=== PATIENT | male | born 1990 | race African-American/Black ===

== ENCOUNTER 2016-07-07 16:13 | Emergency (ER) | payer OTHER ==
[~2016-07-07] VITALS: Ht 177.8 cm; Wt 52.5 kg
[~2016-07-07 16:13] MED LIST: AMOX875T PO
[2016-07-07 16:15] VITALS: BP 114/82; PULSE 75; RESP 16; TEMP 98.3; O2SAT 98
--- NOTE | 2016-07-07 19:08 | PD ---
HPI Chief Complaint: Abnormal Results Time Seen by Provider: 19:05 Travel History International Travel<30 days: No Contact w/Intl Traveler<30days: No Traveled to known affect area: No History of Present Illness HPI 25-year-old male presents to the emergency department sent by his primary care physician, Dr. Campbell. Patient is a poor historian. He states that he was sent here for his kidneys. At first, he states he states he has been vomiting for approximately 2 months, but then states she's been vomiting for 1 year, but it worsened for the past 2 months. He states that he had a follow-up appointment with Dr. Campbell today. He states he was sent here for his kidneys , but then states he was sent here because he looked dehydrated. The patient reports diffuse abdominal pain. He states that he has "problems with my kidneys ", but no other chronic medical problems. He states he does not currently take any medications. PFSH Past Medical History Asthma: Yes Cancer: No Cardiovascular Problems: No Diabetes: No Endocrine: No Gastrointestinal Disorders: No Genitourinary: No Hepatitis: No Hiatal Hernia: No Hypertension: No Immune Disorder: No Musculoskeletal: No Neurologic: No Psychiatric: No Reproductive: No Respiratory: Yes (ASTHMA) Thyroid Disease: No Past Surgical History Abdominal Surgery: No AICD: No Cardiac Surgery: No Ear Surgery: No Endocrine Surgery: No Eye Surgery: No Genitourinary Surgery: No Gynecologic Surgery: No Joint Replacement: No Oral Surgery: No Pacemaker: No Thoracic Surgery: Yes Social History Alcohol Use: No Tobacco Use: No Substance Use: Yes (smokes pot) Allergies-Medications (Allergen,Severity, Reaction): Coded Allergies: No Known Allergies (Unverified , 03/29/16) Reported Meds & Prescriptions Reported Meds & Active Scripts Active Amoxicillin 875 Mg Tab 875 Mg PO BID Review of Systems Except as stated in HPI: all other systems reviewed are Neg Physical Exam Narrative GENERAL: Well-developed well-nourished male patient, ambulatory. Afebrile. SKIN: Warm and dry. HEAD: Normocephalic. Atraumatic. EYES: No scleral icterus. No injection or drainage. NECK: Supple, trachea midline. No JVD or lymphadenopathy. CARDIOVASCULAR: Regular rate and rhythm without murmurs, gallops, or rubs. RESPIRATORY: Breath sounds equal bilaterally. No accessory muscle use. Lungs sounds are clear to auscultation. GASTROINTESTINAL: Abdomen soft and nondistended. Patient has diffuse tenderness throughout. MUSCULOSKELETAL: No cyanosis, or edema. BACK: Nontender without obvious deformity. No CVA tenderness. Data Data Last Documented VS Vital Signs Date Time Temp Pulse Resp B/P Pulse Ox O2 Delivery O2 Flow Rate FiO2 07/07/16 16:15 98.3 75 16 114/82 98 Room Air Orders Complete Blood Count With Diff (07/07/16 19:05) Comprehensive Metabolic Panel (07/07/16 19:05) Lipase (07/07/16 19:05) Labs Laboratory Tests Test 07/07/16 19:30 White Blood Count 5.4 TH/MM3 Red Blood Count 3.29 MIL/MM3 Hemoglobin 9.7 GM/DL Hematocrit 28.5 % Mean Corpuscular Volume 86.6 FL Mean Corpuscular Hemoglobin 29.5 PG Mean Corpuscular Hemoglobin 34.1 % Concent Red Cell Distribution Width 14.1 % Platelet Count 109 TH/MM3 Mean Platelet Volume 9.0 FL Neutrophils (%) (Auto) 55.9 % Lymphocytes (%) (Auto) 30.3 % Monocytes (%) (Auto) 7.5 % Eosinophils (%) (Auto) 5.8 % Basophils (%) (Auto) 0.5 % Neutrophils # (Auto) 3.0 TH/MM3 Lymphocytes # (Auto) 1.6 TH/MM3 Monocytes # (Auto) 0.4 TH/MM3 Eosinophils # (Auto) 0.3 TH/MM3 Basophils # (Auto) 0.0 TH/MM3 CBC Comment DIFF FINAL Differential Comment Sodium Level 142 MEQ/L Potassium Level 4.3 MEQ/L Chloride Level 108 MEQ/L Carbon Dioxide Level 27.2 MEQ/L Anion Gap 7 MEQ/L Blood Urea Nitrogen 41 MG/DL Creatinine 5.09 MG/DL Estimat Glomerular Filtration 17 ML/MIN Rate Random Glucose 101 MG/DL Calcium Level 8.5 MG/DL Total Bilirubin 0.4 MG/DL Aspartate Amino Transf 9 U/L (AST/SGOT) Alanine Aminotransferase 13 U/L (ALT/SGPT) Alkaline Phosphatase 49 U/L Total Protein 6.9 GM/DL Albumin 3.4 GM/DL Lipase 189 U/L [facility] Medical Decision Making Medical Screen Exam Complete: Yes Emergency Medical Condition: Yes Medical Record Reviewed: Yes Differential Diagnosis Dehydration versus CHRISTOPH versus ARF versus CRF versus pancreatitis versus chronic vomiting Narrative Course 25-year-old male presents to the emergency department stating he was sent by his primary care physician for kidney disease and dehydration. CBC, CMP, lipase are ordered and pending. Workup is initiated in triage. Once a medical bed becomes available, patient will be transferred and care assumed by that provider. Patient left AGAINST MEDICAL ADVICE before the patient was transferred to medical pod. Diagnosis Primary Impression: Left against medical advice Disposition: 07 AGAINST MEDICAL ADVICE Esme Gonzalez Jul 07, 2016 19:08
[2016-07-07 19:44] LABS: BASOPHIL % 0.5 % (0.0-2.0); EOSINOPHIL # 0.3 TH/MM3 (0-0.4); EOSINOPHIL % 5.8 % (0.0-4.0); HEMATOCRIT 28.5 % (39.0-51.0); HEMO FLAGS DIFF FINAL; LYMPH % 30.3 % (9.0-44.0); LYMPHOCYTE # 1.6 TH/MM3 (1.0-4.8); MEAN CELL VOLUME 86.6 FL (80.0-100.0); MEAN CORPUSCULAR HEMOGLOBIN 29.5 PG (27.0-34.0); MEAN CORPUSCULAR HGB CONC 34.1 % (32.0-36.0); MONO % 7.5 % (0.0-8.0); NEUT % 55.9 % (16.0-70.0); PLATELET COUNT 109 TH/MM3 (150-450); RED BLOOD COUNT 3.29 MIL/MM3 (4.50-5.90); RED CELL DISTRIBUTION WIDTH 14.1 % (11.6-17.2); WHITE BLOOD COUNT 5.4 TH/MM3 (4.0-11.0)
[2016-07-07 20:08] LABS: ALT (GPT) 13 U/L (12-78); ANION GAP 7 MEQ/L (5-15); AST (GOT) 9 U/L (15-37); BICARBONATE 27.2 MEQ/L (21.0-32.0); BLOOD UREA NITROGEN 41 MG/DL (7-18); CHLORIDE 108 MEQ/L (98-107); GLOMERULAR FILTRATION RATE 17 ML/MIN (>89); POTASSIUM 4.3 MEQ/L (3.5-5.1); SODIUM (NA) 142 MEQ/L (136-145)
[2016-07-07 20:11] LABS: ALKALINE PHOSPHATASE 49 U/L (45-117); TOTAL BILIRUBIN ADULT 0.4 MG/DL (0.2-1.0)
[2016-08-24] MEDS ORDERED: ALBU6.7H INH (09:32)
== END 2016-07-07 21:14 | disposition left against medical advice (07) ==
LOC: NETRI 16:13
DX: R11.10 Vomiting, unspecified (principal); R10.84 Generalized abdominal pain; J45.909 Unspecified asthma, uncomplicated
CPT/HCPCS: 80053; 83690; 85025; 99283

== ENCOUNTER → 2016-08-24 | Day surgery (SDC) | payer OTHER ==
[~2016-08-24] VITALS: Ht 177.8 cm; Wt 52.6 kg
[~2016-08-24] MED LIST changes: +ACETAMINOPHEN 1000 MG/100 ML VIAL IV ONE; +ALBU6.7H INH; +BUPIVACAINE/EPINEPHRINE 0.5% 50 ML VIAL ONE; +DEXAMETHASONE SOD PHOS 4 MG/ML VIAL ONE; +DO NOT ADM ANY ANTICOAGULANT DRUGS PRN; +FAMOTIDINE 20 MG/2 ML VIAL ONE; +HEPARIN SODIUM - IV 10,000 UNITS/10 ML VIAL ONE; +LACTATED RINGER'S 1000 ML INJ 1,000 ML IV ONE; +MIDAZOLAM HCL 2 MG/2 ML VIAL ONE; +MORPHINE SULFATE 4 MG/ML INJ PO PRN; +NEOSTIGMINE 3 MG/3 ML SYR IV ONE; +ONDANSETRON HCL 4 MG/2 ML VIAL ONE; +PROPOFOL 200 MG/20 ML AMP IV ONE; +PROTAMINE SULFATE 50 MG/5 ML VIAL ONE; +ZOFR4TAB PO; +ceFAZolin 2 GM PREMIX 50 ML ONE; +fentaNYL CITRATE 250 MCG/5 ML AMP ONE
[2016-08-24 09:44] VITALS: BP 132/95; PULSE 58; RESP 16; TEMP 97.8; O2SAT 100
--- NOTE | 2016-08-24 10:13 | RADRPT ---
EXAM DATE/TIME: 08/24/2016 09:37 [place] COMPARISON: CHEST SINGLE AP, March 03, 2016, 15:23. INDICATIONS : Evaluate for pneumothorax, pneumonia and communicable diseases. Pre-op for fistula placement. MEDICAL HISTORY : Asthma. SURGICAL HISTORY : None. ENCOUNTER: Initial ACUITY: 1 day PAIN SCORE: 0/10 LOCATION: Bilateral chest FINDINGS: A single view of the chest demonstrates the lungs to be symmetrically aerated without evidence of mas s, infiltrate or effusion. The cardiomediastinal contours are unremarkable. Osseous structures are intact. CONCLUSION: No acute disease. Maurice Morales MD FACR on August 24, 2016 at 10:11 Board Certified Radiologist. This report was verified electronically.
[2016-08-24 10:18] LABS: AUTOMATED NEUTROPHIL # 3.4 TH/MM3 (1.8-7.7); BASOPHIL % 0.6 % (0.0-2.0); EOSINOPHIL # 0.4 TH/MM3 (0-0.4); HEMATOCRIT 29.1 % (39.0-51.0); HEMO FLAGS DIFF FINAL; LYMPH % 24.9 % (9.0-44.0); LYMPHOCYTE # 1.4 TH/MM3 (1.0-4.8); MEAN CELL VOLUME 88.4 FL (80.0-100.0); MEAN CORPUSCULAR HEMOGLOBIN 28.7 PG (27.0-34.0); MEAN CORPUSCULAR HGB CONC 32.4 % (32.0-36.0); MONO % 6.8 % (0.0-8.0); NEUT % 60.7 % (16.0-70.0); PLATELET COUNT 103 TH/MM3 (150-450); RED BLOOD COUNT 3.29 MIL/MM3 (4.50-5.90); RED CELL DISTRIBUTION WIDTH 14.9 % (11.6-17.2); WHITE BLOOD COUNT 5.6 TH/MM3 (4.0-11.0)
[2016-08-24 10:27] LABS: APTT (PATIENT) 29.3 SEC (24.3-30.1)
[2016-08-24 10:31] LABS: BICARBONATE 26.6 MEQ/L (21.0-32.0); POTASSIUM 5.2 MEQ/L (3.5-5.1)
--- NOTE | 2016-08-24 10:46 | PD.VS.PN ---
Pre-operative Note Pre-operative diagnosis: near ESRD, need for HD access Planned procedure: L UE Access (brachiobasilic, 1st stage - likely) Interval History: The patient has persistent nausea but unchanged in weeks. No fevers and feels at baseline. Labs: Laboratory Results Test 08/24/16 09:50 White Blood Count 5.6 TH/MM3 (4.0-11.0) Red Blood Count 3.29 MIL/MM3 (4.50-5.90) Hemoglobin 9.4 GM/DL (13.0-17.0) Hematocrit 29.1 % (39.0-51.0) Mean Corpuscular Volume 88.4 FL (80.0-100.0) Mean Corpuscular Hemoglobin 28.7 PG (27.0-34.0) Mean Corpuscular Hemoglobin 32.4 % Concent (32.0-36.0) Red Cell Distribution Width 14.9 % (11.6-17.2) Platelet Count 103 TH/MM3 (150-450) Mean Platelet Volume 9.9 FL (7.0-11.0) Prothromb Time International 1.0 RATIO Ratio Sodium Level 140 MEQ/L (136-145) Potassium Level 5.2 MEQ/L (3.5-5.1) Chloride Level 108 MEQ/L (98-107) Carbon Dioxide Level 26.6 MEQ/L (21.0-32.0) Anion Gap 5 MEQ/L (5-15) Blood Urea Nitrogen 42 MG/DL (7-18) Random Glucose 85 MG/DL (74-106) Calcium Level 8.8 MG/DL (8.5-10.1) Blood: Pt refuses transfusion. Imaging: Last Impressions Chest X-Ray 08/24/16920 Signed Impressions: Service Date/Time: Wednesday, August 24, 2016 09:37 - CONCLUSION: No acute disease. Maurice Morales MD FACR Orders: NPO Ancef 2g IV OCTOR Post-operative destination: PACU (outpatient surgery) Operative site marked: Yes Consent: Informed consent has been obtained from Lonnie Lacy. I have explained the procedure in detail and discussed the risks, benefits, and potential complications. All questions have been answered. Patient contact information: mother Camacho Combs Brett MUNOZ August 24, 2016 10:46
--- NOTE | 2016-08-24 11:11 | EKG ---
Date Performed: 08/24/2016 Time Performed: 09:33:16 PTAGE: 25 years EKG: SINUS BRADYCARDIA ST ELEVATION, PROBABLY EARLY REPOLARIZATION BORDERLINE ECG NO PREVIOUS TRACING DOCTOR: Lalit Emery Interpretating Date/Time 08/24/2016 11:10:20
--- NOTE | 2016-08-24 13:10 | HHI.PR ---
cc: Etta Raymond MD Immediate Post Op Note Procedure Date: August 24, 2016 Pre Op Diagnosis: near ESRD, need for HD access Post Op Diagnosis: near ESRD, need for HD access Surgeon: Camacho Combs [employer] Supervisor(s): Karina Soria Procedure: L brachiocephalic AVF Findings: 3mm branch of cephalic vein, transposed and anastomosed to brachial artery Additional Information: + thrill and good Doppler signal at wrist Complications: none Specimen(s) removed: none Estimated blood loss: 20mL Anesthesia: General Drains: None Fluids: 800 mL IVF Patient to: PACU Patient Condition: Good Date/Time of Procedure: SEE SURGICAL CARE RECORD Camacho Combs MD August 24, 2016 13:10
[2016-08-24 15:45] VITALS: BP 162/89; PULSE 79; RESP 16; TEMP 96; O2SAT 100
--- NOTE | 2016-08-26 08:06 | MP ---
cc: LALO COMBS MD DATE OF 1990 PREOPERATIVE DIAGNOSIS Near end-stage renal disease, need for dialysis access. POSTOPERATIVE DIAGNOSIS Near end-stage renal disease, need for dialysis access. PROCEDURE Left brachiocephalic arteriovenous fistula. ATTENDING SURGEON Lalo Combs MD ANESTHESIA General. SMOKING PIPE [employer]KER Karina Soria INDICATIONS Mr. Lacy is a 25-year-old gentleman with [id number] renal disease who is not yet on dialysis. He is taken to the operating room for left upper extremity access. Preoperatively he was assessed to have a marginal basilic and cephalic vein and intraoperatively, after the administration of general anesthetic, his cephalic vein appeared adequate, although somewhat lateral from his brachial artery. This was chosen for the autogenous access. DESCRIPTION OF PROCEDURE Informed consent was obtained from the patient. He was taken to the operating room and placed supine on the operating room table. An appropriate time-out was taken to insure the patient's identity, the operative site and planned procedure. The administration of 2 grams of Ancef was initiated prior to the skin incision and will be discontinued after a single preoperative dose. Everyone in the room agreed with the time-out and we proceeded. His left arm was prepped and draped and antecubital incision was made with a 10 blade, carried down through the subcutaneous tissue with electrocautery. The cephalic vein was identified and dissected free, the side branches ligated with 3-0 silk. The cephalic vein was dissected free proximally and distally for some distance. The brachial artery was identified on the medial aspect of the incision. The distal aspect of the cephalic vain was clamped with a right-angle, the vein was transected and the proximal aspect was clamped with a Juvenal bulldog. The distal end was oversewn with 3-0 silk suture. After adequate length of the brachial artery was mobilized, the patient was systemically heparinized with 3000 units of IV heparin. Proximal and distal control of the brachial artery was obtained with profunda clamps and a longitudinal arteriotomy was made with an 11 blade, extended with [place] scissors. The vein was spatulated and sewn end-to-side with running 6-0 Prolene sutures. At the completion, the wound was flushed, noted to be hemostatic. Repair suture was made with 6-0 Prolene suture. There was a nice thrill in the fistula and the central cephalic vein was mobilized slightly to make the course lie in a more natural and smooth course. There was a nice thrill throughout the fistula. There was a Doppler signal at the wrist. The heparin was reversed with Protamine. The wound was irrigated, infiltrated with Marcaine and closed with 2-0 Polysorb, 3-0 Polysorb and 4-0 Monocryl. The sponge and needle counts were correct at the end of the case. I was present and scrubbed and performed the entire procedure. MD CECILIA Meier/VIDYA /2:09 PM /7:49 AM
== END | disposition home or self-care (01) ==
LOC: HSDC 08:38
PROVIDERS: ATTEND Surgery
DX: N18.6 End stage renal disease (principal); R00.1 Bradycardia, unspecified
CPT/HCPCS: 01844; 36821; 71010; 76937; 80048; 85025; 85610; 85730; 93005; J0131; J0690; J1100; J1644; J2250; J2405; J2710; J2720; J3010; J7120

== ENCOUNTER 2016-09-04 08:36 | Emergency (ER) | payer OTHER ==
[~2016-09-04] VITALS: Ht 177.8 cm; Wt 60.0 kg
[~2016-09-04 08:36] MED LIST changes: -ACETAMINOPHEN 1000 MG/100 ML VIAL IV ONE; -AMOX875T PO; -BUPIVACAINE/EPINEPHRINE 0.5% 50 ML VIAL ONE; -DEXAMETHASONE SOD PHOS 4 MG/ML VIAL ONE; -DO NOT ADM ANY ANTICOAGULANT DRUGS PRN; -FAMOTIDINE 20 MG/2 ML VIAL ONE; -HEPARIN SODIUM - IV 10,000 UNITS/10 ML VIAL ONE; -LACTATED RINGER'S 1000 ML INJ 1,000 ML IV ONE; -MIDAZOLAM HCL 2 MG/2 ML VIAL ONE; -MORPHINE SULFATE 4 MG/ML INJ PO PRN; -NEOSTIGMINE 3 MG/3 ML SYR IV ONE; -ONDANSETRON HCL 4 MG/2 ML VIAL ONE; -PROPOFOL 200 MG/20 ML AMP IV ONE; -PROTAMINE SULFATE 50 MG/5 ML VIAL ONE; -ZOFR4TAB PO; -ceFAZolin 2 GM PREMIX 50 ML ONE; -fentaNYL CITRATE 250 MCG/5 ML AMP ONE
[2016-09-04 08:38] VITALS: BP 146/85; PULSE 69; RESP 16; TEMP 98.3; O2SAT 99
[2016-09-04] MEDS ORDERED: ZOFR4TAB PO (10:11)
[2016-09-04] MEDS ORDERED: ONDANSETRON ODT 4 MG TAB PO ONE (10:15)
--- NOTE | 2016-09-04 10:19 | PD ---
HPI Chief Complaint: General Weakness Time Seen by Provider: 08:52 Travel History International Travel<30 days: No Contact w/Intl Traveler<30days: No Traveled to known affect area: No History of Present Illness HPI This patient complains of having paresthesias in his legs. He's had them for 2 months. They're somewhat intermittent. Yesterday at 9 PM they had a bit of a flare. He has no muscle weakness or sensory loss or speech slurring or confusion. He has history of chronic renal failure and had left arm vascular surgery 10 days ago in preparation for dialysis. Symptoms severity is mild. No alleviating factors. PFSH Past Medical History Asthma: Yes Cancer: No Cardiovascular Problems: No Diabetes: No Endocrine: No Gastrointestinal Disorders: No Genitourinary: No Hepatitis: No Hiatal Hernia: No Hypertension: No Immune Disorder: No Musculoskeletal: No Neurologic: No Psychiatric: No Reproductive: No Respiratory: Yes (ASTHMA) Renal Failure: Yes Thyroid Disease: No Past Surgical History Abdominal Surgery: No AICD: No Cardiac Surgery: No Ear Surgery: No Endocrine Surgery: No Eye Surgery: No Genitourinary Surgery: No Gynecologic Surgery: No Joint Replacement: No Oral Surgery: No Pacemaker: No Thoracic Surgery: Yes Other Surgery: Yes (DIALYSIS SHUNT PLACEMENT LEFT UPPER ARM) Social History Alcohol Use: No Tobacco Use: No Substance Use: Yes (MARIJUANA) Allergies-Medications (Allergen,Severity, Reaction): Coded Allergies: No Known Allergies (Unverified , 09/04/16) Reported Meds & Prescriptions Reported Meds & Active Scripts Active Zofran (Ondansetron HCl) 4 Mg Tab 4 Mg PO Q6HR PRN Reported Proventil Hfa 6.7 GM Inh (Albuterol Sulfate) 90 Mcg/Act Aer 1 Puff INH Q6HR PRN Review of Systems General / Constitutional: No: Fever HENT: No: Headaches Cardiovascular: No: Chest Pain or Discomfort Respiratory: No: Cough Physical Exam Narrative NEUROLOGICAL: Awake and alert. Pupils are equal round and reactive. Motor and sensory grossly within normal limits. Five out of 5 muscle strength in all muscle groups. Normal speech. GASTROINTESTINAL: Abdomen soft, non-tender, nondistended. Positive bowel sounds. No hepato-splenomegaly, or palpable masses. No guarding. NECK: Symmetrical appearance, midline trachea. No mass or crepitus. Thyroid without enlargement, tenderness, or mass. SKIN: Focused skin assessment reveals no rash or ulcers. Skin is warm and dry. Palpation shows no induration or nodules. Left arm surgical site looks good with no sign of infection or dehiscence Data Data Last Documented VS Vital Signs Date Time Temp Pulse Resp B/P Pulse Ox O2 Delivery O2 Flow Rate FiO2 09/04/16 08:48 18 Room Air 09/04/16 08:38 98.3 69 146/85 99 Orders Ondansetron Odt (Zofran Odt) (09/04/16 10:15) MDM Medical Decision Making Medical Screen Exam Complete: Yes Emergency Medical Condition: Yes Medical Record Reviewed: Yes Differential Diagnosis Peripheral neuropathy, TIA, CVA Narrative Course I have reviewed the patient's electronic medical record. Patient is bilateral leg paresthesias somewhat intermittently for the last 2 months No objective findings on exam He looks neurologically normal and is minimally symptomatic Stable for outpatient follow-up Presentation not consistent with stroke Diagnosis Primary Impression: Paresthesia of bilateral legs Additional Impression: Chronic renal failure Qualified Code: N18.4 - Chronic renal failure, stage 4 (severe) Additional Instructions: The patient was advised to follow up with their physician and return if they worsen. Med/Other Pt SpecificInfo: Other Scripts Ondansetron (Zofran)4 Mg Tab4 Mg PO Q6HR PRN (NAUSEA OR VOMITING) #14 TAB Ref 0 Prov:Cristopher Potter MD 09/04/16 Disposition: 01 DISCHARGE HOME Condition: Stable Cristopher Potter MD September 04, 2016 10:19
[2016-09-04 10:53] VITALS: BP 143/81
== END 2016-09-04 10:54 | disposition home or self-care (01) ==
LOC: NEPE 08:36
DX: R20.9 Unspecified disturbances of skin sensation (principal); N18.4 Chronic kidney disease, stage 4 (severe); J45.909 Unspecified asthma, uncomplicated; F12.90 Cannabis use, unspecified, uncomplicated
CPT/HCPCS: 99283

== ENCOUNTER 2016-10-25 16:53 | Emergency (ER) | payer SELFPAY ==
[~2016-10-25 16:53] MED LIST changes: +ZOFR4TAB PO
[2016-10-25 16:56] VITALS: BP 168/112; PULSE 84; RESP 20; TEMP 97.8; O2SAT 100
== END 2016-10-25 17:55 | disposition left against medical advice (07) ==
LOC: NED 16:53
DX: R07.9 Chest pain, unspecified (principal); Z53.21 Procedure and treatment not carried out due to patient leaving prior to being seen by health care provider
CPT/HCPCS: 99281

== ENCOUNTER 2017-10-10 01:40 | Emergency (ER) | payer SELFPAY ==
[~2017-10-10] VITALS: Ht 177.8 cm; Wt 55.0 kg
[2017-10-10 01:42] VITALS: BP 152/86; PULSE 69; RESP 18; TEMP 97.3; O2SAT 99
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
[2017-10-10 03:34] LABS: BICARBONATE 18.4 MEQ/L (21.0-32.0); CALCIUM 8.4 MG/DL (8.5-10.1)
[2017-10-10 04:07] LABS: CREATININE 14.82 MG/DL (0.60-1.30)
[2017-10-10] MEDS ORDERED: SODIUM POLYSTYRENE SULFONATE SUSP 15 GM/60 ML CUP PO ONE (04:45)
[2017-10-10] MEDS ORDERED: SODI200S PO (04:49)
--- NOTE | 2017-10-10 14:12 | EKG ---
Date Performed: 10/10/2017 Time Performed: 04:16:53 PTAGE: 26 years EKG: SINUS BRADYCARDIA HIGH QRS VOLTAGE, PROBABLY NORMAL FOR AGE EARLY REPOLARIZATION Since prev ious tracing, no significant change noted ABNORMAL ECG PREVIOUS TRACING : 08/24/2016 09.33 DOCTOR: Brennan Harrison Interpretating Date/Time 10/10/2017 14:11:38
== END 2017-10-10 05:18 | disposition home or self-care (01) ==
LOC: NEPC 01:40
DX: N18.6 End stage renal disease (principal); E87.5 Hyperkalemia; R20.2 Paresthesia of skin; M79.673 Pain in unspecified foot; R94.31 Abnormal electrocardiogram [ECG] [EKG]; I12.0 Hypertensive chronic kidney disease with stage 5 chronic kidney disease or end stage renal disease; J45.909 Unspecified asthma, uncomplicated; Z99.2 Dependence on renal dialysis
CPT/HCPCS: 80048; 93005; 99284

== ENCOUNTER 2017-11-01 11:13 | Inpatient (IN) ==
--- NOTE | 2017-11-01 12:21 | ED ---
HPI General Chief complaint: Chest Pain Stated complaint: Chest Pain Time Seen by Provider: 11/01/17 11:57 History of Present Illness HPI narrative: Patient presents to the emergency department for chest pain and missed dialysis. States that he missed dialysis on Wednesday because he had to move and he was at dialysis today when he was sent to the ER for chest pain. Chest pains described as being left-sided, constant, nonradiating, 4 out of 10, sharp, no alleviating or aggravating factors. He was apparently given nitro at dialysis which did not help his symptoms and also Zofran by [facility]. States that he is vomiting yellow fluid initially had some abdominal pain all over but denies currently. He denies fever, diarrhea, recent travel, lower extremity edema. States that he initially has shortness of breath with the chest pain but it is resolved now. Patient states that he does make some urine. Related Data Allergies Allergy/AdvReac Type Severity Reaction Status Date / Time No Known Allergies Allergy NONE Uncoded 11/01/17 12:10 Review of Systems ROS Unobtainable All other systems reviewed negative except as stated in HPI [facility] Medical History Medical History AV fistula (Acute) ESRD (end stage renal disease) on dialysis (Acute) HTN (hypertension) (Acute) Social History Social History Substance History: No History of Abuse Smoking Status: Never smoker How Often Do You Have a Drink Containing Alcohol: Never Recent Travel in [place] within the Last 8 Weeks: No Recent Out of Country Travel within the Last 8 Weeks: No Immunization History Tetanus Immunization: Unsure Hx Influenza Vaccine This Season: Unable to Assess Exam Narrative Exam Narrative: GENERAL: No acute distress. SKIN: Focused skin assessment warm/dry. HEAD: Atraumatic. Normocephalic. EYES: Pupils equal and round. No scleral icterus. No injection or drainage. ENT: No nasal bleeding or discharge. Mucous membranes pink and moist. NECK: Trachea midline. No JVD. CARDIOVASCULAR: Regular rate and rhythm. +murmur appreciated. RESPIRATORY: No accessory muscle use. Clear to auscultation. Breath sounds equal bilaterally. GASTROINTESTINAL: Abdomen soft, non-tender, nondistended. Hepatic and splenic margins not palpable. MUSCULOSKELETAL: No obvious deformities. No clubbing. No cyanosis. No edema. NEUROLOGICAL: Awake and alert. No obvious cranial nerve deficits. Motor grossly within normal limits. Normal speech. PSYCHIATRIC: Appropriate mood and affect; insight and judgment normal. Course Initial Documented Vital Signs Pulse Rate 78 11/01/17 11:51 Respiratory Rate 24 11/01/17 11:51 Blood Pressure 146/90 H 11/01/17 11:51 Pulse Oximetry 95 11/01/17 11:51 Last Documented Vital Signs Pulse Rate 77 11/01/17 14:18 Respiratory Rate 16 11/01/17 14:18 Blood Pressure 146/90 H 11/01/17 12:05 Pulse Oximetry 96 11/01/17 12:15 Medical Decision Making MDM Narrative Medical decision making narrative: hypocalcemiaPatient presents to the emergency department from dialysis for chest pain. Patient placed on registered nurse cardiac telemetry, continuous pulse ox, and IV access obtained. EKG, chest x-ray, labs ordered. He states that he cannot take aspirin only Tylenol. CXR shows no acute cardiopulmonary disease. CBC shows decrease hgb, HCT, PLT. Chemistry was positive for hyperkalemia, though the specimen was hemolyzed. BUN and creatinine increased, hypocalcemia. Ordered VBG to repeat potassium, and it was 8.8. Patient written for a gram of calcium gluconate, an amp of D50, 10 units regular insulin IV, and 10 mg albuterol neb. Spoke to the physician on- call for the patient's fisherman helper, as her fisherman helper is out of town. His finding physician does not have privileges at [facility]. He requested that I call nephrology refrigeration engineering teacher, , to dialyse patient. He has been consulted. The responding MD advised that he would text Dr. Gupta as well. Patient will be admitted, lipase and CKMB pending at time of admission. Spoke to Dr. Gupta's midlevel provider, who advised that she will send dialysis team to dialyse patient in ER. He's given CaCl 0.3g IV (hospital out of calcium gluconate and per pharmacy 0.3g IV CaCl equivalent to 1g calcium gluconate IV, 1 amp D50, 10U regular insulin IV, albuterol 10mg neb, 30 g kayexalate, 20mg IV lasix). He is admitted to intermediate care. juno Morales MD, at bedside 1410. 1343: Patient without chest pain. 1436: Dialysis/renal at bedside. Dr Gupta called back and discussed patient's presentation and workup. Lab Data Result diagrams: 11/01/17 12:20 11/01/17 12:20 Lab Results 11/01/17 11/01/17 11/01/17 Range/Units 12:20 12:20 12:20 WBC 7.8 (4.0-11.0) th/mm3 RBC 3.34 L (4.50-5.90) mil/mm3 Hgb 10.0 L (13.0-17.0) gm/dL Hct 30.0 L (39.0-51.0) % MCV 89.9 (80.0-100.0) fL MCH 30.0 (27.0-34.0) pg MCHC 33.4 (32.0-36.0) % RDW 15.8 (11.6-17.2) % Plt Count 116 L (150-450) th/mm3 MPV 8.7 (7.0-11.0) fL Neut % (Auto) 84.0 H (16.0-70.0) % Lymph % (Auto) 10.8 (9.0-44.0) % Summers % (Auto) 2.8 (0.0-8.0) % Eos % (Auto) 1.8 (0.0-4.0) % Baso % (Auto) 0.6 (0.0-2.0) % Neut # (Auto) 6.5 (1.8-7.7) th/mm3 Lymph # (Auto) 0.8 L (1.0-4.8) th/mm3 Summers # (Auto) 0.2 (0.0-0.9) th/mm3 Eos # (Auto) 0.1 (0.0-0.4) th/mm3 Baso # (Auto) 0.1 (0.0-0.2) th/mm3 WBC Differential . Differential Comment Auto diff final PT 11.5 (9.8-11.6) sec INR 1.1 Ratio APTT 24.5 (24.3-30.1) sec Sodium 141 (136-145) meq/L Potassium 8.6 H* (3.5-5.1) meq/L Chloride 113 H (98-107) meq/L Carbon Dioxide 15.1 L (21.0-32.0) meq/L Anion Gap 13 (5-15) meq/L BUN 81 H (7-18) mg/dL Creatinine 13.31 H* (0.60-1.30) mg/dL Estimated GFR 5 L (>89) mL/min Random Glucose 76 (74-106) mg/dL Calcium 7.3 L* (8.5-10.1) mg/dL Prot Corrected Calcium 7.5 L (8.5-10.1) mg/dL Magnesium 1.6 (1.5-2.5) mg/dL Total Bilirubin 0.6 (0.2-1.0) mg/dL AST 21 (15-37) U/L ALT 19 (12-78) U/L Alkaline Phosphatase 47 (45-117) U/L Total Creatine Kinase 205 (39-308) U/L CK-MB (CK-2) 0.8 (0.5-3.6) ng/mL Troponin I Less than 0.02 L (0.02-0.05) ng/mL B-Natriuretic Peptide (0-100) pg/mL Total Protein 6.8 (6.4-8.2) g/dL Albumin 3.4 (3.4-5.0) g/dL Lipase 175 (73-393) U/L 11/01/17 Range/Units 12:20 WBC (4.0-11.0) th/mm3 RBC (4.50-5.90) mil/mm3 Hgb (13.0-17.0) gm/dL Hct (39.0-51.0) % MCV (80.0-100.0) fL MCH (27.0-34.0) pg MCHC (32.0-36.0) % RDW (11.6-17.2) % Plt Count (150-450) th/mm3 MPV (7.0-11.0) fL Neut % (Auto) (16.0-70.0) % Lymph % (Auto) (9.0-44.0) % Summers % (Auto) (0.0-8.0) % Eos % (Auto) (0.0-4.0) % Baso % (Auto) (0.0-2.0) % Neut # (Auto) (1.8-7.7) th/mm3 Lymph # (Auto) (1.0-4.8) th/mm3 Summers # (Auto) (0.0-0.9) th/mm3 Eos # (Auto) (0.0-0.4) th/mm3 Baso # (Auto) (0.0-0.2) th/mm3 WBC Differential Differential Comment PT (9.8-11.6) sec INR Ratio APTT (24.3-30.1) sec Sodium (136-145) meq/L Potassium (3.5-5.1) meq/L Chloride (98-107) meq/L Carbon Dioxide (21.0-32.0) meq/L Anion Gap (5-15) meq/L BUN (7-18) mg/dL Creatinine (0.60-1.30) mg/dL Estimated GFR (>89) mL/min Random Glucose (74-106) mg/dL Calcium (8.5-10.1) mg/dL Prot Corrected Calcium (8.5-10.1) mg/dL Magnesium (1.5-2.5) mg/dL Total Bilirubin (0.2-1.0) mg/dL AST (15-37) U/L ALT (12-78) U/L Alkaline Phosphatase (45-117) U/L Total Creatine Kinase (39-308) U/L CK-MB (CK-2) (0.5-3.6) ng/mL Troponin I (0.02-0.05) ng/mL B-Natriuretic Peptide 49 (0-100) pg/mL Total Protein (6.4-8.2) g/dL Albumin (3.4-5.0) g/dL Lipase (73-393) U/L Imaging Data Radiologist's impression: Chest X-Ray 11/01/17 12:15 CONCLUSION: No acute cardiopulmonary disease ECG Data Attestation: I personally reviewed and interpreted this ECG as follows: (Rate 83 , sinus rhythm, first-degree AV block, normal axis, LVH, atrial enlargement, T wave inversion in aVL (on ECG 08/24/16)) Discharge Plan Discharge Disposition Patient Disposition: 30 Still Patient Discharge Condition Condition: Stable Discharge Details Diagnosis: Chest pain, Acute hyperkalemia, Renal failure (ARF), acute on chronic Physicians Team ED Provider: Diane Hoover Primary Care Provider: Wilbert Campbell Attending Provider: Lanre Wyatt Other Providers: Tato Gupta Status ED Status: Admitted Patient
[2017-11-01 12:38] LABS: Baso # (Auto) 0.1 th/mm3 (0.0-0.2); Baso % (Auto) 0.6 % (0.0-2.0); Eos # (Auto) 0.1 th/mm3 (0.0-0.4); Eos % (Auto) 1.8 % (0.0-4.0); Lymph # (Auto) 0.8 th/mm3 (1.0-4.8); Lymph % (Auto) 10.8 % (9.0-44.0); Mean Corpuscular HGB Conc 33.4 % (32.0-36.0); Mean Corpuscular Volume 89.9 fL (80.0-100.0); Mean Platelet Volume 8.7 fL (7.0-11.0); Mono # (Auto) 0.2 th/mm3 (0.0-0.9); Mono % (Auto) 2.8 % (0.0-8.0); Neut # (Auto) 6.5 th/mm3 (1.8-7.7); Platelet Count 116 th/mm3 (150-450); Red Blood Count 3.34 mil/mm3 (4.50-5.90); Red Cell Distribution Width 15.8 % (11.6-17.2); White Blood Count 7.8 th/mm3 (4.0-11.0)
[2017-11-01 12:46] LABS: Activated Partial Thrombo Time 24.5 sec (24.3-30.1); INR 1.1 Ratio; Prothrombin Time 11.5 sec (9.8-11.6)
--- NOTE | 2017-11-01 12:48 | XR ---
EXAM DATE: 11/01/2017 12:44 PM EDT AGE/SEX: 26 years / Male INDICATIONS: . Chest pains, fever, vomiting, nausea. CLINICAL DATA: This is the patient's initial encounter. Patient reports that signs and symptoms have been present for 2 days and indicates a pain score of 7/10. MEDICAL/SURGICAL HISTORY: None. None. COMPARISON: No prior exams available for comparison. FINDINGS: A single AP view of the chest demonstrates the lungs to be symmetrically aerated without evidence of mass, infiltrate or effusion. The cardiomediastinal contours are unremarkable. Osseous structures a re intact. CONCLUSION: No acute cardiopulmonary disease Electronically signed by: Derrek Stevenson MD 11/01/2017 12:47 PM EDT
[2017-11-01 13:03] LABS: Alanine Aminotransferase 19 U/L (12-78); Albumin 3.4 g/dL (3.4-5.0); Alkaline Phosphatase 47 U/L (45-117); Anion Gap 13 meq/L (5-15); Aspartate Aminotransferase 21 U/L (15-37); Blood Urea Nitrogen 81 mg/dL (7-18); Calcium 7.3 mg/dL (8.5-10.1); Carbon Dioxide 15.1 meq/L (21.0-32.0); Chloride 113 meq/L (98-107); Creatine Kinase 205 U/L (39-308); Glomerular Filtration Rate 5 mL/min (>89); Glucose,Random 76 mg/dL (74-106); Magnesium 1.6 mg/dL (1.5-2.5); Sodium 141 meq/L (136-145); Total Protein 6.8 g/dL (6.4-8.2)
[2017-11-01 13:07] LABS: Potassium 8.6 meq/L (3.5-5.1)
[2017-11-01] MEDS ORDERED: Calcium Gluconate Inj 1 GM in Sodium Chlor 0.9% Inj 100 ML IV.SIG ONE (13:15)
[2017-11-01] MEDS ORDERED: RESP: Albuterol Concentrated 2.5 MG/0.5 ML Neb NEB ONE (13:29)
[2017-11-01] MEDS ORDERED: Dextrose 50% in Water 50 ML Vial IV.PUSH ONE (13:29)
[2017-11-01] MEDS ORDERED: Sodium Polystyrene Sulfonate/Sorbitol Liq 15 GM/60 ML UDC PO ONE (13:57)
[2017-11-01] MEDS ORDERED: Bisacodyl 10 MG Supp RECTAL PRN (14:19)
[2017-11-01] MEDS ORDERED: Gelatin 12 MM/7 MM Topical Foam TOPICAL PRN (14:38)
[2017-11-01] MEDS ORDERED: Acetaminophen 325 MG Tablet PO PRN (14:38)
[2017-11-01] MEDS ORDERED: Sod Chloride 0.9% Inj 1,000 ML OTHER PRN ×2 (14:38)
[2017-11-01] MEDS ORDERED: Heparin 10,000 UNITS/10 ML Vial (for IV use) IV.FLUSH PRN (14:38)
[2017-11-01] MEDS ORDERED: Sod Chloride 0.9% Inj 1,000 ML IV.CONT PRN (14:38)
[2017-11-01] MEDS ORDERED: Heparin 10,000 UNITS/10 ML Vial (for IV use) OTHER PRN (14:38)
[2017-11-01] MEDS ORDERED: Albumin Human 25% Inj 100 ML IV.SIG PRN (14:38)
[2017-11-01] MEDS ORDERED: Calcium Chloride Inj 0.3 GM in Sodium Chlor 0.9% Inj 100 ML IV.SIG ONE (15:00)
[2017-11-01 15:07] LABS: Creatine Kinase MB 0.8 ng/mL (0.5-3.6); Lipase 175 U/L (73-393)
--- NOTE | 2017-11-01 15:43 | P.HP ---
History of Present Illness Primary Care Physician: Wilbert Campbell MD Chief Complaint: chest pain History of Present Illness: 26-year-old male with history of ESRD on HD, HTN, presents with chest pain and noncompliance with dialysis. Patient is currently seen in the ER, receiving emergent dialysis. Dialysis nurse at bedside. The patient has covers over his head, and refuses to talk with me. He states "I just do not feel like it". When asked about his chest pain, he states it has resolved. He declines to further elaborate on his chest pain. He does not answer any further questions for me including his medical or surgical history, therefore history supplemented from the EMR. Per ER report, the patient missed his dialysis on Wednesday because he is in the process of moving. He was at dialysis today when he developed chest pain. He described the chest pain in the ER as constant left sided nonradiating 4/10 sharp pains. He was given nitro at dialysis which reportedly did not alleviate his symptoms, and was also given Zofran via [facility]. He also had episodes of vomiting and some diffuse abdominal pain, but this is resolved. He also had brief shortness of breath, also resolved. The patient does continue to make some urine. Patient does not answer review of system questions. Inpatient Certification: I certify that the inpatient services were ordered in accordance with Medicare regulations governing the order. This includes certification that hospital inpatient services are reasonable and necessary and in the case of services not specified as inpatient-only under 42 CFR 419.22(n), that they are appropriately provided as inpatient services in accordance to with the 2-midnight benchmark under 43 CFR 412.3(e) Estimated Total Length of Stay (Days): 2 Plans for Post Hospital Care: Home Review of Systems other (Patient refuses to answer any further questions. ) [facility] - History History Provided By: Leaf Tinner / EMT - Medical History Medical History: Medical History (Last Updated 11/01/17 @ 12:05 by Khushi Spears RN) AV fistula ESRD (end stage renal disease) on dialysis HTN (hypertension) - Family History Family History: Family History (Last Updated 11/01/17 @ 16:57 by Maxine Lozada) Other Patient refused evaluation - Alcohol History How Often Do You Have a Drink Containing Alcohol: Never - Substance Use History Substance History: No History of Abuse - Travel History Recent Travel in the [place] Within the Last 8 Weeks: No Recent Travel Out of the Country Within the Last 8 Weeks: No - Immunization History Tetanus Immunization: Unsure Hx Influenza Vaccine This Season: Unable to Assess Medications and Allergies Active Medications: Active Medications Acetaminophen (Tylenol) 650 mg PO UNSCH PRN PRN Reason: SEE LABEL COMMENTS Al Hydroxide/Mg Hydroxide (Milk Of Magnesia Liq) 30 ml PO Q12H PRN PRN Reason: Mild Constipation Aspirin (Aspirin) 325 mg PO DAILY KAYLIE Bisacodyl (Dulcolax Supp) 10 mg RECTAL DAILY PRN PRN Reason: SEVERE CONSITIPATION Clonidine HCl (Catapres) 0.1 mg PO UNSCH PRN PRN Reason: SEE LABEL COMMENTS Diphenhydramine HCl (Benadryl) 25 mg PO UNSCH PRN PRN Reason: SEE LABEL COMMENTS Epoetin Chris (Epogen Inj) 5,000 unit IV.PUSH UNSCH PRN PRN Reason: SEE LABEL COMMENTS Gelatin (Gelfoam 12 Mm/7 Mm Topical) 1 foam TOPICAL UNSCH PRN PRN Reason: help stop bleeding from site Gentamicin Sulfate (Gentamicin Inj) 20 mg OTHER WITH DIALYSIS PRN PRN Reason: Dwell Gentamycin Lock Heparin Sodium (Porcine) (Heparin Inj) 8,000 units IV.FLUSH WITH DIALYSIS PRN PRN Reason: for machine prime Heparin Sodium (Porcine) (Heparin Inj) 0 units OTHER WITH DIALYSIS PRN PRN Reason: Dwell Heparin to Fill Catheter Calcium Chloride 0.3 gm/ (Sodium Chloride) 103 mls @ 103 mls/hr IV.SIG ONCE ONE Stop: 11/01/17 15:59 Last Admin: 11/01/17 14:16 Dose: 103 mls/hr Albumin Human (Flexbumin 25% Inj) 100 mls @ 60 mls/hr IV.SIG WITH DIALYSIS PRN PRN Reason: hypotension / volume replace Sodium Chloride (Ns Inj) 1,000 mls @ 0 mls/hr OTHER .Q0M PRN PRN Reason: for prime and rinse back Sodium Chloride (Ns Inj) 1,000 mls @ 200 mls/hr OTHER .Q5H PRN PRN Reason: for dialyzer flush PRN Sodium Chloride (Ns Inj) 1,000 mls @ 0 mls/hr IV.CONT .Q0M PRN PRN Reason: hypotension / volume replace Lactulose (Lactulose Liq) 30 ml PO DAILY PRN PRN Reason: SEVERE CONSITIPATION Mannitol (Mannitol Inj) 12.5 gm IV.PUSH UNSCH PRN PRN Reason: hypotension / volume replace Nitroglycerin (Nitrostat Sl) 0.4 mg SL Q5M PRN PRN Reason: CHEST PAIN Senna/Docusate Sodium (Ruth-Colace) 1 tab PO BID KAYLIE Sennosides (Senokot) 17.2 mg PO Q12H PRN PRN Reason: Moderate Constipation Sodium Chloride (Ns Flush) 5 ml IV.FLUSH UNSCH PRN PRN Reason: flush each lumen during HD Temazepam (Restoril) 15 mg PO HS PRN PRN Reason: INSOMNIA Allergies Allergy/AdvReac Type Severity Reaction Status Date / Time No Known Allergies Allergy NONE Uncoded 11/01/17 12:10 Exam Vital signs: Vital Signs 11/01/17 11:51 11/01/17 12:05 11/01/17 12:15 Pulse Rate 78 85 79 Respiratory Rate 24 26 H Blood Pressure 146/90 H 146/90 H Pulse Oximetry 95 100 96 11/01/17 14:18 Pulse Rate 77 Respiratory Rate 16 Blood Pressure Pulse Oximetry Intake & Output 10/31/17 11/01/17 11/01/17 18:59 06:59 18:59 Weight 56.699 kg Narrative: GENERAL: Thin young AA male patient in [facility]. SKIN: Warm and dry. No rash. HEAD: Normocephalic. Atraumatic. EYES: Pupils equal and round. No scleral icterus. No injection or drainage. ENT: No nasal bleeding or discharge. Mucous membranes pink and moist. CARDIOVASCULAR: Tachycardic, regular rhythm. No murmur appreciated. RESPIRATORY: No accessory muscle use. Clear to auscultation. Breath sounds equal bilaterally. GASTROINTESTINAL: Abdomen soft, non-tender, nondistended. Normoactive bowel sounds x4. MUSCULOSKELETAL: No obvious deformities. Extremities without clubbing, cyanosis , or edema. LUE AV fistula. NEUROLOGICAL: Awake and alert. No obvious cranial nerve deficits. Moving all extremities spontaneously. Normal speech. PSYCHIATRIC: Appropriate mood and affect; insight and judgment normal. Results - Labs CBC & Chem 7: 11/01/17 12:20 11/01/17 12:20 Labs: Laboratory Results - last 24 hr 11/01/17 11/01/17 11/01/17 12:20 12:20 12:20 WBC 7.8 RBC 3.34 L Hgb 10.0 L Hct 30.0 L MCV 89.9 MCH 30.0 MCHC 33.4 RDW 15.8 Plt Count 116 L MPV 8.7 Neut % (Auto) 84.0 H Lymph % (Auto) 10.8 Gentry % (Auto) 2.8 Eos % (Auto) 1.8 Baso % (Auto) 0.6 Neut # (Auto) 6.5 Lymph # (Auto) 0.8 L Gentry # (Auto) 0.2 Eos # (Auto) 0.1 Baso # (Auto) 0.1 WBC Differential . Differential Comment Auto diff final PT 11.5 INR 1.1 APTT 24.5 Sodium 141 Potassium 8.6 H* Chloride 113 H Carbon Dioxide 15.1 L Anion Gap 13 BUN 81 H Creatinine 13.31 H* Estimated GFR 5 L Random Glucose 76 Calcium 7.3 L* Prot Corrected Calcium 7.5 L Magnesium 1.6 Total Bilirubin 0.6 AST 21 ALT 19 Alkaline Phosphatase 47 Total Creatine Kinase 205 CK-MB (CK-2) 0.8 Troponin I Less than 0.02 L B-Natriuretic Peptide Total Protein 6.8 Albumin 3.4 Lipase 175 11/01/17 12:20 WBC RBC Hgb Hct MCV MCH MCHC RDW Plt Count MPV Neut % (Auto) Lymph % (Auto) Gentry % (Auto) Eos % (Auto) Baso % (Auto) Neut # (Auto) Lymph # (Auto) Gentry # (Auto) Eos # (Auto) Baso # (Auto) WBC Differential Differential Comment PT INR APTT Sodium Potassium Chloride Carbon Dioxide Anion Gap BUN Creatinine Estimated GFR Random Glucose Calcium Prot Corrected Calcium Magnesium Total Bilirubin AST ALT Alkaline Phosphatase Total Creatine Kinase CK-MB (CK-2) Troponin I B-Natriuretic Peptide 49 Total Protein Albumin Lipase - Imaging Impressions Chest X-Ray 11/01/17 12:15 CONCLUSION: No acute cardiopulmonary disease Caprini VTE Risk Assessment Caprini VTE Risk Assessment: No/Low Risk (score <= 1) Caprini Risk Assessment Model: Point Value = 1 Point Value = 2 Point Value = 3 Point Value = 5 Age 41-60 Minor surgery BMI > 25 kg/m2 Swollen legs Varicose veins or History of unexplained or recurrent spontaneous Oral contraceptives or hormone replacement Sepsis (< 1 month) Serious lung disease, including pneumonia (< 1 month) Abnormal pulmonary function Acute myocardial infarction Congestive heart failure (< 1 month) History of inflammatory bowel disease Medical patient at bed rest Age 61-74 Arthroscopic surgery Major open surgery (> 45 min) Laparoscopic surgery (> 45 min) Malignancy Confined to bed (> 72 hours) Immobilizing plaster cast Central venous access Age >= 75 History of VTE Family history of VTE Factor V Leiden Prothrombin [id number] Lupus anticoagulant Anticardiolipin antibodies Elevated serum homocysteine Heparin-induced thrombocytopenia Other congenital or acquired thrombophilia Stroke (< 1 month) Elective arthroplasty Hip, pelvis, or leg fracture Acute spinal cord injury (< 1 month) Prophylaxis Regimen: Total Risk Factor Score Risk Level Prophylaxis Regimen 0-1 Low Early ambulation 2 Moderate Order ONE of the following: *Sequential Compression Device (SCD) *Heparin 5000 units SQ BID 3-4 Higher Order ONE of the following medications: *Heparin 5000 units SQ TID *Enoxaparin/Lovenox 40 mg SQ daily (WT < 150 kg, CrCl > 30 mL/min) *Enoxaparin/Lovenox 30 mg SQ daily (WT < 150 kg, CrCl > 10-29 mL/min) *Enoxaparin/Lovenox 30 mg SQ BID (WT < 150 kg, CrCl > 30 mL/min) AND/OR *Sequential Compression Device (SCD) 5 or more Highest Order ONE of the following medications: *Heparin 5000 units SQ TID (Preferred with Epidurals) *Enoxaparin/Lovenox 40 mg SQ daily (WT < 150 kg, CrCl > 30 mL/min) *Enoxaparin/Lovenox 30 mg SQ daily (WT < 150 kg, CrCl > 10-29 mL/min) *Enoxaparin/Lovenox 30 mg SQ BID (WT < 150 kg, CrCl > 30 mL/min) AND *Sequential Compression Device (SCD) Assessment and Plan - Plan 26-year-old male with history of ESRD on HD, HTN, presents with chest pain and noncompliance with dialysis. Severe Hyperkalemia: K 8.6 upon arrival. Suspect secondary to noncompliance with dialysis. -Emergent dialysis initiated in the ED -S/p IV Calcium Chloride, D50/insulin, albuterol neb, lasix, and kayexalate in the ED -Monitor on telemetry -Repeat labs ESRD: noncompliant with HD. -consult nephrology to resume dialysis -patient currently will not answer questions about who he follows with -appreciate nephrology assistance Chest Pain: suspect Uremic Pericarditis. -Rule out ACS with serial cardiac enzymes and EKGs -check echocardiogram -give aspirin -monitor on telemetry -Nitro prn -chest pain currently resolved Anemia: Hgb 10.0 upon arrival. Suspect anemia of chronic renal disease. -no signs of blood loss -check iron studies/ferritin/b12/folate in am -monitor CBC DVT Prophylaxis: teds/SCDs Discussed Condition With: Patient, ER MD, DRUM PLATER, Dr. Wyatt
--- NOTE | 2017-11-01 17:06 | P.CONNP ---
<Debra Ferreira - Last Filed: 11/01/17 20:16> History of Present Illness Service: Nephrology Consult date: 11/01/17 Reason for Consult: ESRD, missed HD, hypekalemia Primary Care Provider: Wilbert Campbell MD Family Provider: Wilbert Campbell MD History of Present Illness: This is a 26 yo AAM patient maintained on HD who missed HD Wednesday as he was moving. Went to HD today at the clinic and reported CP, they gave him a NTG and directed him to the ER. His K was reported at 8.8, some hemolysis noted. Other PMH as listed below includes ESRD, HTN, and anemia. We initiated emergent HD in the ER, he was seen during treatment. He states that he wants to leave after HD today. He is a full code, not in distress, and follows with Dr. Robledo in the community. Review of Systems All other systems reviewed negative except as stated in HPI Cardiovascular: Reports chest pain PMFSH - History History Provided By: Industrial Manufacturing Technician / EMT - Medical History Medical History: Medical History (Last Updated 11/01/17 @ 12:05 by Khushi Spears RN) AV fistula ESRD (end stage renal disease) on dialysis HTN (hypertension) - Family History Family History: Family History (Last Updated 11/01/17 @ 16:57 by Maxine Lozada) Other Patient refused evaluation - Tobacco History Smoking Status: Never smoker - Alcohol History How Often Do You Have a Drink Containing Alcohol: Never - Substance Use History Substance History: No History of Abuse - Travel History Recent Travel in the [place] Within the Last 8 Weeks: No Recent Travel Out of the Country Within the Last 8 Weeks: No - Immunization History Tetanus Immunization: Unsure Hx Influenza Vaccine This Season: Unable to Assess Medications and Allergies Allergies Allergy/AdvReac Type Severity Reaction Status Date / Time No Known Allergies Allergy NONE Uncoded 11/01/17 12:10 Active Medications: Active Medications Acetaminophen (Tylenol) 650 mg PO UNSCH PRN PRN Reason: SEE LABEL COMMENTS Al Hydroxide/Mg Hydroxide (Milk Of Ezequiel Liq) 30 ml PO Q12H PRN PRN Reason: Mild Constipation Aspirin (Aspirin) 325 mg PO DAILY KAYLIE Bisacodyl (Dulcolax Supp) 10 mg RECTAL DAILY PRN PRN Reason: SEVERE CONSITIPATION Clonidine HCl (Catapres) 0.1 mg PO UNSCH PRN PRN Reason: SEE LABEL COMMENTS Diphenhydramine HCl (Benadryl) 25 mg PO UNSCH PRN PRN Reason: SEE LABEL COMMENTS Epoetin Chris (Epogen Inj) 5,000 unit IV.PUSH UNSCH PRN PRN Reason: SEE LABEL COMMENTS Gelatin (Gelfoam 12 Mm/7 Mm Topical) 1 foam TOPICAL UNSCH PRN PRN Reason: help stop bleeding from site Gentamicin Sulfate (Gentamicin Inj) 20 mg OTHER WITH DIALYSIS PRN PRN Reason: Dwell Gentamycin Lock Heparin Sodium (Porcine) (Heparin Inj) 8,000 units IV.FLUSH WITH DIALYSIS PRN PRN Reason: for machine prime Heparin Sodium (Porcine) (Heparin Inj) 0 units OTHER WITH DIALYSIS PRN PRN Reason: Dwell Heparin to Fill Catheter Albumin Human (Flexbumin 25% Inj) 100 mls @ 60 mls/hr IV.SIG WITH DIALYSIS PRN PRN Reason: hypotension / volume replace Sodium Chloride (Ns Inj) 1,000 mls @ 0 mls/hr OTHER .Q0M PRN PRN Reason: for prime and rinse back Sodium Chloride (Ns Inj) 1,000 mls @ 200 mls/hr OTHER .Q5H PRN PRN Reason: for dialyzer flush PRN Sodium Chloride (Ns Inj) 1,000 mls @ 0 mls/hr IV.CONT .Q0M PRN PRN Reason: hypotension / volume replace Lactulose (Lactulose Liq) 30 ml PO DAILY PRN PRN Reason: SEVERE CONSITIPATION Mannitol (Mannitol Inj) 12.5 gm IV.PUSH UNSCH PRN PRN Reason: hypotension / volume replace Nitroglycerin (Nitrostat Sl) 0.4 mg SL Q5M PRN PRN Reason: CHEST PAIN Senna/Docusate Sodium (Ruth-Colace) 1 tab PO BID KAYLIE Sennosides (Senokot) 17.2 mg PO Q12H PRN PRN Reason: Moderate Constipation Sodium Chloride (Ns Flush) 5 ml IV.FLUSH UNSCH PRN PRN Reason: flush each lumen during HD Temazepam (Restoril) 15 mg PO HS PRN PRN Reason: INSOMNIA Exam Vital signs: Vital Signs 11/01/17 11:51 11/01/17 12:05 11/01/17 12:15 Pulse Rate 78 85 79 Respiratory Rate 24 26 H Blood Pressure 146/90 H 146/90 H Pulse Oximetry 95 100 96 11/01/17 14:18 11/01/17 15:46 Pulse Rate 77 107 H Respiratory Rate 16 20 Blood Pressure 140/72 Pulse Oximetry 100 Intake & Output 10/31/17 11/01/17 11/01/17 18:59 06:59 18:59 Weight 56.699 kg - Constitutional no acute distress - Routine HEENT Exam Head: Present: normocephalic - Routine Neck Exam Present: supple, full ROM - Routine Chest/Breast/Axilla Exam Chest wall: Absent: tenderness - Routine Respiratory Exam Present: CTA bilaterally. Absent: accessory muscle use - Routine Cardiovascular Exam Present: RRR, tachycardia - Routine Abdominal Exam Present: soft, normoactive bowel sounds - Routine Extremities Exam Present: AV fistula. Absent: calf tenderness Comments: Left arm AVF - Routine Skin Exam Present: intact, warm - Routine Neurological Exam Present: alert, oriented X3, CN II-XII intact Results - Lab Results 11/01/17 12:20 11/01/17 12:20 Most recent lab results Calcium 7.3 mg/dL (8.5-10.1) L* 11/01/17 12:20 Magnesium 1.6 mg/dL (1.5-2.5) 11/01/17 12:20 Assessment and Plan - Assessment (1) ESRD (end stage renal disease) on dialysis Code(s): N18.6 - End stage renal disease; Z99.2 - Dependence on renal dialysis Status: Acute Plan: Typical MWF HD, his last treatment was on Wednesday. Seen during emergent HD today on a 1K, BFR 350, 2L UF. He may need treatment again tomorrow. Repeat labs in AM if he agrees to stay. Avoid IVF administration. Avoid left arm procedures. Gadolinium is contraindicated. (2) Anemia in CKD (chronic kidney disease) Code(s): N18.9 - Chronic kidney disease, unspecified; D63.1 - Anemia in chronic kidney disease Status: Acute Plan: Epogen ordered with dialysis. (3) Acute hyperkalemia Code(s): E87.5 - Hyperkalemia Status: Acute Plan: Due to missing dialysis. HD on a 1K, low K diet ordered. Repeat labs. - Plan Code Status: Full <Hoskote,Tato - Last Filed: 11/02/17 09:49> History of Present Illness Primary Care Provider: Wilbert Campbell MD Family Provider: Wilbert Campbell MD [facility] - Medical History Medical History: Medical History (Last Updated 11/01/17 @ 12:05 by Khushi Spears RN) AV fistula ESRD (end stage renal disease) on dialysis HTN (hypertension) - Family History Family History: Family History (Last Updated 11/01/17 @ 16:57 by Maxine Lozada) Other Patient refused evaluation Exam Vital signs: Vital Signs 11/01/17 11:51 11/01/17 12:05 11/01/17 12:15 Pulse Rate 78 85 79 Respiratory Rate 24 26 H Blood Pressure 146/90 H 146/90 H Pulse Oximetry 95 100 96 11/01/17 14:18 11/01/17 15:46 11/01/17 18:13 Pulse Rate 77 107 H 102 H Respiratory Rate 16 20 18 Blood Pressure 140/72 145/86 H Pulse Oximetry 100 97 Intake & Output 11/01/17 11/02/17 11/02/17 18:59 06:59 18:59 Output Total 1999 Balance -1999 Weight 56.699 kg Output: Hemodialysis Amount 1999 Results - Lab Results 11/01/17 12:20 11/01/17 12:20 Most recent lab results Calcium 7.3 mg/dL (8.5-10.1) L* 11/01/17 12:20 Magnesium 1.6 mg/dL (1.5-2.5) 11/01/17 12:20 Assessment and Plan - Assessment (1) ESRD (end stage renal disease) on dialysis Code(s): N18.6 - End stage renal disease; Z99.2 - Dependence on renal dialysis Status: Acute (2) Anemia in CKD (chronic kidney disease) Code(s): N18.9 - Chronic kidney disease, unspecified; D63.1 - Anemia in chronic kidney disease Status: Acute (3) Acute hyperkalemia Code(s): E87.5 - Hyperkalemia Status: Inactive - Attending Attestation patient was seen and examined on 11/01/17. Seen during dialysis. Non compliant, admitted with hyperkalemia, emergent dialysis was arranged. Patient later left AMA. Agree with above assessment and plan.
[2017-11-01] MEDS ORDERED: Senna/Docusate Sodium 8.6/50 MG Tablet PO SCH (21:00)
[2017-11-01] MEDS ORDERED: Temazepam 15 MG Capsule PO PRN (21:00)
[2017-11-02] MEDS ORDERED: Aspirin 325 MG Tablet PO SCH (09:00)
--- NOTE | 2017-11-02 21:10 | ECG ---
Date Performed: 11/01/2017 Time Performed: 12:01:51 PTAGE: 26 years EKG: Sinus rhythm WITH FIRST DEGREE AV BLOCK POSSIBLE LEFT ATRIAL ENLARGEMENT ABNORMAL ECG PREVIOUS TRACING : 10/10/2017 04.16 No significant change when compared with previous DOCTOR: Bryant Escobar Interpretating Date/Time 11/02/2017 21:09:11
== END 2017-11-01 19:41 | disposition left against medical advice (07) ==
LOC: NEPE 11:13 → NEDA 12:05
PROVIDERS: ADMIT Internal Medicine; ATTEND Internal Medicine
DX: I32 Pericarditis in diseases classified elsewhere; Z99.2 Dependence on renal dialysis; E87.5 Hyperkalemia; E83.51 Hypocalcemia; Z91.15 Patient's noncompliance with renal dialysis; I44.0 Atrioventricular block, first degree; I12.0 Hypertensive chronic kidney disease with stage 5 chronic kidney disease or end stage renal disease; N18.6 End stage renal disease; D63.1 Anemia in chronic kidney disease

== ENCOUNTER 2017-12-02 10:22 | Inpatient (IN) ==
[2017-12-02] MEDS ORDERED: Sodium Chlor 0.9% Inj 250 ML IV.SIG ONE ×2 (10:47→12:23)
[2017-12-02 11:13] LABS: Baso % (Auto) 0.7 % (0.0-2.0); Eos # (Auto) 0.2 th/mm3 (0.0-0.4); Eos % (Auto) 3.6 % (0.0-4.0); Hematocrit 26.3 % (39.0-51.0); Hemoglobin 8.7 gm/dL (13.0-17.0); Lymph # (Auto) 1.1 th/mm3 (1.0-4.8); Lymph % (Auto) 20.1 % (9.0-44.0); Mean Corpuscular HGB Conc 33.1 % (32.0-36.0); Mean Corpuscular Hemoglobin 30.9 pg (27.0-34.0); Mean Corpuscular Volume 93.2 fL (80.0-100.0); Mean Platelet Volume 8.9 fL (7.0-11.0); Mono # (Auto) 0.4 th/mm3 (0.0-0.9); Neut # (Auto) 3.7 th/mm3 (1.8-7.7); Neut % (Auto) 68.6 % (16.0-70.0); Platelet Count 75 th/mm3 (150-450); Red Blood Count 2.82 mil/mm3 (4.50-5.90); Red Cell Distribution Width 15.8 % (11.6-17.2); White Blood Count 5.3 th/mm3 (4.0-11.0)
[2017-12-02 11:22] LABS: Bilirubin,Urine Negative (Negative); Clarity,Urine Clear (Clear); Color,Urine Yellow (Yellw/Straw); Glucose,Urine (UA) Negative (Negative); Leukocyte Esterase,Urine Negative (Negative); Nitrite,Urine Negative (Negative); Specific Gravity,Urine 1.009 (1.002-1.035); Squamous Epithelial Cell,Urine 1 /hpf (0-5)
[2017-12-02 11:39] LABS: Albumin 3.6 g/dL (3.4-5.0); Calcium 8.1 mg/dL (8.5-10.1); Carbon Dioxide 23.5 meq/L (21.0-32.0)
[2017-12-02 11:41] VITALS: TEMP 97.8
[2017-12-02] MEDS ORDERED: Sodium Bicarbonate 8.4% Inj 50 MEQ/50 ML Syringe IV.PUSH ONE (12:23)
[2017-12-02] MEDS ORDERED: Sod Chloride 0.9% Inj 1,000 ML IV.CONT PRN (12:40)
[2017-12-02] MEDS ORDERED: Albumin Human 25% Inj 100 ML IV.SIG PRN (12:40)
[2017-12-02] MEDS ORDERED: Gelatin 12 MM/7 MM Topical Foam TOPICAL PRN (12:40)
[2017-12-02] MEDS ORDERED: Sod Chloride 0.9% Inj 1,000 ML OTHER PRN ×2 (12:40)
[2017-12-02] MEDS ORDERED: Heparin 10,000 UNITS/10 ML Vial (for IV use) OTHER PRN (12:40)
[2017-12-02] MEDS ORDERED: Acetaminophen 325 MG Tablet PO PRN ×2 (12:40→13:27)
[2017-12-02 12:50] VITALS: BP 156/75; PULSE 73; RESP 17; O2SAT 100
[2017-12-02] MEDS ORDERED: amLODIPine 10 MG Tablet PO SCH (13:30)
--- NOTE | 2017-12-02 13:36 | P.HPIM ---
History of Present Illness Primary Care Physician: Wilbert Campbell MD Chief Complaint: ' I'm not feeling well'. History of Present Illness: patient is a 26 y/o male with history of ESRD-on HD ( MWF schedule), hypertension, who presented to ER, stating that he wasn't feeling well. he says that for the past four days he's had nausea,vomiting, non-bloody diarrhea and on and off abdominal pain. pain is more or less periumbilical and mild to moderate in intensity. he says that he probably had some fever and chills at home. he had his last dialysis yesterday but he says that he didn't take his medications because he wasn't feeling well. he denies using any antibiotics recently. Review of Systems All other systems reviewed negative except as stated in HPI PMFSH - History History Provided By: Patient - Medical History Medical History: Medical History (Last Reviewed 12/02/17 @ 10:48 by Bonnie Ambrosio) Asthma AV fistula ESRD (end stage renal disease) on dialysis HTN (hypertension) - Family History Family History: Family History (Last Updated 11/01/17 @ 16:57 by Maxine Lozada) Other Patient refused evaluation - Tobacco History Second Hand Smoke Exposure: No Smoking Status: Never smoker - Alcohol History How Often Do You Have a Drink Containing Alcohol: Never - Substance Use History Substance History: No History of Abuse - Immunization History Tetanus Immunization: >5 Years Hx Influenza Vaccine This Season: No Medications and Allergies Active Medications: Active Medications Acetaminophen (Tylenol) 650 mg PO UNSCH PRN PRN Reason: SEE LABEL COMMENTS Acetaminophen (Tylenol) 650 mg PO Q4H PRN PRN Reason: fever/pain Amlodipine Besylate (Norvasc) 10 mg PO DAILY KAYLIE Clonidine HCl (Catapres) 0.1 mg PO UNSCH PRN PRN Reason: SEE LABEL COMMENTS Diphenhydramine HCl (Benadryl) 25 mg PO UNSCH PRN PRN Reason: SEE LABEL COMMENTS Epoetin Chris (Epogen Inj) 10,000 unit IV.PUSH UNSCH PRN PRN Reason: SEE LABEL COMMENTS Gelatin (Gelfoam 12 Mm/7 Mm Topical) 1 foam TOPICAL PRN PRN PRN Reason: help stop bleeding from site Heparin Sodium (Porcine) (Heparin Inj) 8,000 units OTHER WITH DIALYSIS PRN PRN Reason: for machine prime Albumin Human (Flexbumin 25% Inj) 100 mls @ 60 mls/hr IV.SIG WITH DIALYSIS PRN PRN Reason: hypotension / volume replace Sodium Chloride (Ns Inj) 1,000 mls @ 200 mls/hr OTHER .Q5H PRN PRN Reason: for dialyzer flush PRN Sodium Chloride (Ns Inj) 1,000 mls @ 0 mls/hr IV.CONT .Q0M PRN PRN Reason: hypotension / volume replace Sodium Chloride (Ns Inj) 1,000 mls @ 0 mls/hr OTHER .Q0M PRN PRN Reason: for prime and rinse back Mannitol (Mannitol Inj) 12.5 gm IV.PUSH UNSCH PRN PRN Reason: hypotension / volume replace Nitroglycerin (Nitrostat Sl) 0.4 mg SL Q5M PRN PRN Reason: CHEST PAIN Non-Formulary Medication (B Complex-Vitamin C-Folic Acid [Nephro-Jabari]) 1 tab PO DAILY KAYLIE Ondansetron HCl (Zofran Inj) 4 mg IV.PUSH UNSCH PRN PRN Reason: NAUSEA OR VOMITING Ondansetron HCl (Zofran Inj) 4 mg IV.PUSH Q8H PRN PRN Reason: nausea Sodium Chloride (Ns Flush) 2 ml IV.FLUSH PRN PRN PRN Reason: FLUSH AFTER USING IV ACCESS Last Admin: 12/02/17 10:56 Dose: 2 ml Sodium Chloride (Ns Flush) 5 ml IV.FLUSH PRN PRN PRN Reason: flush each lumen during HD Allergies Allergy/AdvReac Type Severity Reaction Status Date / Time No Known Allergies Allergy Unverified 12/02/17 10:43 Home Medications Medication Instructions Recorded Confirmed Type B complex-vitamin C-folic acid 1 tab PO DAILY 12/02/17 12/02/17 History [Nephro-Jabari] amlodipine [Norvasc] 10 mg PO DAILY 12/02/17 12/02/17 History lisinopril 20 mg PO BID 12/02/17 12/02/17 History Exam Vital signs: Vital Signs 12/02/17 10:45 12/02/17 10:48 12/02/17 11:40 Temperature 97.9 F 97.8 F Pulse Rate 73 77 77 Respiratory Rate 15 16 Blood Pressure 176/107 H 180/100 H Pulse Oximetry 100 99 99 12/02/17 12:50 Temperature 97.8 F Pulse Rate 73 Respiratory Rate 17 Blood Pressure 156/75 H Pulse Oximetry 100 Intake & Output 12/01/17 12/02/17 12/02/17 18:59 06:59 18:59 Intake Total 250 / 250 Output Total 400 / 400 Balance -150 / -150 Weight 48.988 kg Intake: IV 250 / 250 NS Inj 250 ML @ Wide Open IV. 250 / 250 SIG BOLUS ONE Rx#:[id number] Output: Urine 400 / 400 Other: # Urine Diapers 1 - Constitutional no acute distress - Routine HEENT Exam Eye: Present: PERRL - Routine Neck Exam Present: full ROM - Routine Respiratory Exam Present: CTA bilaterally - Routine Cardiovascular Exam Present: RRR - Routine Abdominal Exam Present: soft (minimal periumbilical tenderness.) - Routine Neurological Exam Present: alert, oriented X3 Results - Labs CBC & Chem 7: 12/02/17 11:00 12/02/17 11:00 Labs: Short CBC 12/02/17 Range/Units 11:00 WBC 5.3 (4.0-11.0) th/mm3 Hgb 8.7 L (13.0-17.0) gm/dL Hct 26.3 L (39.0-51.0) % Plt Count 75 L D (150-450) th/mm3 BMP 12/02/17 11:00 Sodium 139 Potassium 7.0 H* Chloride 106 Carbon Dioxide 23.5 BUN 49 H Creatinine 11.27 H* Calcium 8.1 L Liver Function 12/02/17 Range/Units 11:00 Total Bilirubin 0.9 (0.2-1.0) mg/dL Direct Bilirubin 0.2 (0.0-0.2) mg/dL AST 10 L (15-37) U/L ALT 18 (12-78) U/L Alkaline Phosphatase 42 L (45-117) U/L Albumin 3.6 (3.4-5.0) g/dL Urine 12/02/17 Range/Units 10:30 Urine Color Yellow (Yellw/Straw) Urine Clarity Clear (Clear) Urine pH 7.0 (5.0-8.5) Ur Specific [place] 1.009 (1.002-1.035) Urine Protein 500 or greater (Neg-Trace) mg/dL Urine Glucose (UA) Negative (Negative) mg/dL Caprini VTE Risk Assessment Caprini VTE Risk Assessment: Moderate/High Risk (score >= 2) Caprini Risk Assessment Model: Point Value = 1 Point Value = 2 Point Value = 3 Point Value = 5 Age 41-60 Minor surgery BMI > 25 kg/m2 Swollen legs Varicose veins or History of unexplained or recurrent spontaneous Oral contraceptives or hormone replacement Sepsis (< 1 month) Serious lung disease, including pneumonia (< 1 month) Abnormal pulmonary function Acute myocardial infarction Congestive heart failure (< 1 month) History of inflammatory bowel disease Medical patient at bed rest Age 61-74 Arthroscopic surgery Major open surgery (> 45 min) Laparoscopic surgery (> 45 min) Malignancy Confined to bed (> 72 hours) Immobilizing plaster cast Central venous access Age >= 75 History of VTE Family history of VTE Factor V Leiden Prothrombin [id number] Lupus anticoagulant Anticardiolipin antibodies Elevated serum homocysteine Heparin-induced thrombocytopenia Other congenital or acquired thrombophilia Stroke (< 1 month) Elective arthroplasty Hip, pelvis, or leg fracture Acute spinal cord injury (< 1 month) Prophylaxis Regimen: Total Risk Factor Score Risk Level Prophylaxis Regimen 0-1 Low Early ambulation 2 Moderate Order ONE of the following: *Sequential Compression Device (SCD) *Heparin 5000 units SQ BID 3-4 Higher Order ONE of the following medications: *Heparin 5000 units SQ TID *Enoxaparin/Lovenox 40 mg SQ daily (WT < 150 kg, CrCl > 30 mL/min) *Enoxaparin/Lovenox 30 mg SQ daily (WT < 150 kg, CrCl > 10-29 mL/min) *Enoxaparin/Lovenox 30 mg SQ BID (WT < 150 kg, CrCl > 30 mL/min) AND/OR *Sequential Compression Device (SCD) 5 or more Highest Order ONE of the following medications: *Heparin 5000 units SQ TID (Preferred with Epidurals) *Enoxaparin/Lovenox 40 mg SQ daily (WT < 150 kg, CrCl > 30 mL/min) *Enoxaparin/Lovenox 30 mg SQ daily (WT < 150 kg, CrCl > 10-29 mL/min) *Enoxaparin/Lovenox 30 mg SQ BID (WT < 150 kg, CrCl > 30 mL/min) AND *Sequential Compression Device (SCD) Assessment and Plan - Plan A/P - Hyperkalemia received Insulin, sodium Bicarbonate and neb treatment in ER- currently having his HD- nephrology consulted- will repeat the BMP this evening after the dialysis. -ESRD- on HD ( MWF schedule); having his HD today- nephrology consulted. -gastroenteritis- check the stool for C-diff and C/S- continue supportive care. -hypertension; didn't take his home meds- will resume Amlodipine- hold lisinopril for now. continue to monitor. -anemia of chronic disease- Epogen with HD- will monitor. -thrombocytopenia- chronic- will monitor. -DVT prophylaxis SCD's. Discussed Condition With: ER physician and the patient.
--- NOTE | 2017-12-02 15:12 | P.CONNP ---
History of Present Illness Service: Nephrology Consult date: 12/02/17 Requesting Physician: Danny Saldana Reason for Consult: End-stage renal disease with hyperkalemia Primary Care Provider: Wilbert Campbell MD Family Provider: Wilbert Campbell MD Chief Complaint: ' I'm not feeling well'. History of Present Illness: Patient is a 26-year-old -German male with history of end-stage renal disease, hypertension who follows with Dr. Johnson had missed dialysis for about 1 week and then showed up yesterday and had a treatment yesterday today he had some nausea, vomiting not feeling well. Dwarf tired and weak and found to have a potassium of 7, patient was treated in emergency with sodium bicarbonate, D50, insulin, he is being transferred for emergent dialysis. Review of Systems Constitutional: Reports anorexia, Reports lack of energy, Reports weakness Eyes: Denies blind spots, Denies blurry vision, Denies bulging eyes, Denies change in vision, Denies double vision, Denies discharge, Denies dry eyes, Denies floaters, Denies irritation, Denies itchy eyes, Denies loss of vision, Denies pain, Denies requires corrective lenses, Denies sensitivity to light, Denies other Cardiovascular: Denies chest pain, Denies chest pain at rest, Denies chest pain with activity, Denies excessive sweating, Denies fainting, Denies fast heart rate, Denies foot swelling, Denies generalized swelling, Denies irregular heart rhythm, Denies leg pain with activity, Denies leg sores, Denies leg swelling, Denies lightheadedness, Denies radiating jaw, neck or arm pain, Denies rapid, pounding, or irregular heartbeat, Denies shortness of breath, Denies shortness of breath with activity, Denies shortness of breath when lying down, Denies shortness of breath causing sudden awakening, Denies slow heart rate, Denies other Respiratory: Reports shortness of breath Gastrointestinal: Reports nausea, Reports vomiting Musculoskeletal: Reports joint pain Psychiatric: Reports anxiety, Reports behavioral changes, Reports irritability PMFSH - History History Provided By: Patient - Medical History Medical History: Medical History (Last Reviewed 12/02/17 @ 18:13 by Liz Pillai MD) AV fistula Asthma ESRD (end stage renal disease) on dialysis HTN (hypertension) - Family History Family History: Family History (Last Reviewed 12/02/17 @ 18:13 by Liz Pillai MD) Other Patient refused evaluation - Tobacco History Second Hand Smoke Exposure: No Smoking Status: Never smoker - Alcohol History How Often Do You Have a Drink Containing Alcohol: Never - Substance Use History Substance History: No History of Abuse - Immunization History Tetanus Immunization: >5 Years Hx Influenza Vaccine This Season: No Medications and Allergies Active Medications: Active Medications Acetaminophen (Tylenol) 650 mg PO UNSCH PRN PRN Reason: SEE LABEL COMMENTS Acetaminophen (Tylenol) 650 mg PO Q4H PRN PRN Reason: fever/pain 1-10 Amlodipine Besylate (Norvasc) 10 mg PO DAILY KAYLIE Last Admin: 12/02/17 14:59 Dose: Not Given Clonidine HCl (Catapres) 0.1 mg PO UNSCH PRN PRN Reason: SEE LABEL COMMENTS Diphenhydramine HCl (Benadryl) 25 mg PO UNSCH PRN PRN Reason: SEE LABEL COMMENTS Epoetin Chris (Epogen Inj) 10,000 unit IV.PUSH UNSCH PRN PRN Reason: SEE LABEL COMMENTS Gelatin (Gelfoam 12 Mm/7 Mm Topical) 1 foam TOPICAL PRN PRN PRN Reason: help stop bleeding from site Heparin Sodium (Porcine) (Heparin Inj) 8,000 units OTHER WITH DIALYSIS PRN PRN Reason: for machine prime Albumin Human (Flexbumin 25% Inj) 100 mls @ 60 mls/hr IV.SIG WITH DIALYSIS PRN PRN Reason: hypotension / volume replace Sodium Chloride (Ns Inj) 1,000 mls @ 200 mls/hr OTHER .Q5H PRN PRN Reason: for dialyzer flush PRN Sodium Chloride (Ns Inj) 1,000 mls @ 0 mls/hr IV.CONT .Q0M PRN PRN Reason: hypotension / volume replace Sodium Chloride (Ns Inj) 1,000 mls @ 0 mls/hr OTHER .Q0M PRN PRN Reason: for prime and rinse back Mannitol (Mannitol Inj) 12.5 gm IV.PUSH UNSCH PRN PRN Reason: hypotension / volume replace Nitroglycerin (Nitrostat Sl) 0.4 mg SL Q5M PRN PRN Reason: CHEST PAIN Ondansetron HCl (Zofran Inj) 4 mg IV.PUSH UNSCH PRN PRN Reason: NAUSEA OR VOMITING Ondansetron HCl (Zofran Inj) 4 mg IV.PUSH Q8H PRN PRN Reason: nausea Sodium Chloride (Ns Flush) 2 ml IV.FLUSH PRN PRN PRN Reason: FLUSH AFTER USING IV ACCESS Last Admin: 12/02/17 10:56 Dose: 2 ml Sodium Chloride (Ns Flush) 5 ml IV.FLUSH PRN PRN PRN Reason: flush each lumen during HD Vitamin B Complex/Vit C/Folic Acid (Nephrocaps) 1 tab PO DAILY KAYLIE Allergies Allergy/AdvReac Type Severity Reaction Status Date / Time No Known Allergies Allergy Unverified 12/02/17 10:43 Home Medications Medication Instructions Recorded Confirmed Type B complex-vitamin C-folic acid 1 tab PO DAILY 12/02/17 12/02/17 History [Nephro-Jabari] amlodipine [Norvasc] 10 mg PO DAILY 12/02/17 12/02/17 History lisinopril 20 mg PO BID 12/02/17 12/02/17 History Exam Vital signs: Vital Signs 12/02/17 10:45 12/02/17 10:48 12/02/17 11:40 Temperature 97.9 F 97.8 F Pulse Rate 73 77 77 Respiratory Rate 15 16 Blood Pressure 176/107 H 180/100 H Pulse Oximetry 100 99 99 12/02/17 12:50 Temperature 97.8 F Pulse Rate 73 Respiratory Rate 17 Blood Pressure 156/75 H Pulse Oximetry 100 Intake & Output 12/01/17 12/02/17 12/02/17 18:59 06:59 18:59 Intake Total 500 / 500 Output Total 400 / 400 Balance 100 / 100 Weight 48.988 kg Intake: IV 500 / 500 NS Inj 250 ML @ Wide Open IV. 500 / 500 SIG BOLUS ONE Rx#:[id number] Output: Urine 400 / 400 Other: # Urine Diapers 1 - Constitutional no acute distress - Routine HEENT Exam Head: Present: normocephalic Eye: Present: EOMI, PERRL - Routine Neck Exam Present: supple - Routine Respiratory Exam Present: CTA bilaterally - Routine Cardiovascular Exam Present: RRR - Routine Abdominal Exam Present: soft, normoactive bowel sounds - Routine Extremities Exam Present: AV fistula - Routine Neurological Exam Present: alert, oriented X3 Results - Lab Results 12/02/17 11:00 12/02/17 18:59 Most recent lab results Calcium 8.1 mg/dL (8.5-10.1) L 12/02/17 11:00 Assessment and Plan - Assessment (1) Hyperkalemia Code(s): E87.5 - Hyperkalemia Status: Acute (2) Hypertension Code(s): I10 - Essential (primary) hypertension Status: Acute (3) ESRD (end stage renal disease) on dialysis Code(s): N18.6 - End stage renal disease; Z99.2 - Dependence on renal dialysis Status: Acute (4) Anemia in CKD (chronic kidney disease) Code(s): N18.9 - Chronic kidney disease, unspecified; D63.1 - Anemia in chronic kidney disease Status: Acute - Plan Code Status: Patient is told about hyperkalemia and he stated he went for his dialysis yesterday however when I called the dialysis center he has missed previous week of dialysis and just showed up yesterday, I told her that her potassium is high and he he has to watch his potassium intake, be compliant with dialysis He is Wednesday and Wednesday patient and will be rescheduled for dialysis for tomorrow Overall noncompliance can lead to increased probability of morbidity and mortality. I have seen him during hemodialysis on 1K bath ultrafiltration of 2 L. Epogen was ordered
--- NOTE | 2017-12-02 18:18 | ED ---
HPI General Chief complaint: Abdominal Pain Stated complaint: Vomitting Time Seen by Provider: 12/02/17 10:28 Source: patient Limitations: no limitations History of Present Illness HPI narrative: Patient is a 26-year-old male, past medical history significant for end-stage renal disease on dialysis, dialyzed yesterday, who presents with complaint of generalized malaise. He states that earlier this week he had nausea, vomiting, diarrhea that have since resolved. He then had dialysis yesterday with did not take off as much fluid as they normally do. He came in today because he is still feeling malaise and generalized weakness. No chest pain or shortness of breath. No abdominal pain or back pain. No fevers nor chills. Onset (ago): day(s) Severity: moderate Pain Consistency: constant Relieving factors: none Exacerbating factors: none Associated symptoms: malaise Treatments prior to arrival: none Related Data Home Medications Medication Instructions Recorded Confirmed B complex-vitamin C-folic acid 1 tab PO DAILY 12/02/17 12/02/17 [Nephro-Jabari] amlodipine [Norvasc] 10 mg PO DAILY 12/02/17 12/02/17 lisinopril 20 mg PO BID 12/02/17 12/02/17 Allergies Allergy/AdvReac Type Severity Reaction Status Date / Time No Known Allergies Allergy Unverified 12/02/17 10:43 Review of Systems ROS: all other systems reviewed are negative Constitutional Reports malaise Eyes Denies blurry vision ENT Denies nasal congestion Cardiovascular Denies chest pain Respiratory Denies dyspnea Gastrointestinal Denies abdominal pain Genitourinary Denies flank pain Musculoskeletal Denies back pain Neurologic Reports behavioral changes, Denies syncope, Denies loss of vision and Reports weakness Endocrine Reports fatigue [facility] Medical History Medical History Asthma (Acute) AV fistula (Acute) ESRD (end stage renal disease) on dialysis (Acute) HTN (hypertension) (Acute) Family History Family History Other Patient refused evaluation Social History Social History Substance History: No History of Abuse Second Hand Smoke Exposure: No Smoking Status: Never smoker How Often Do You Have a Drink Containing Alcohol: Never Immunization History Tetanus Immunization: >5 Years Hx Influenza Vaccine This Season: No Exam Narrative Exam Narrative: GENERAL: Cachectic, chronically ill-appearing man in no acute distress SKIN: Focused skin assessment warm/dry. HEAD: Atraumatic. Normocephalic. EYES: Pupils equal and round. No scleral icterus. No injection or drainage. ENT: No nasal bleeding or discharge. Mucous membranes pink and dry. NECK: Trachea midline. No JVD. CARDIOVASCULAR: Regular rate and rhythm. No murmur appreciated. RESPIRATORY: No accessory muscle use. Clear to auscultation. Breath sounds equal bilaterally. GASTROINTESTINAL: Abdomen soft, non-tender, nondistended. Hepatic and splenic margins not palpable. MUSCULOSKELETAL: No obvious deformities. No clubbing. No cyanosis. No edema. NEUROLOGICAL: Awake and alert. No obvious cranial nerve deficits. Motor grossly within normal limits. Normal speech. PSYCHIATRIC: Appropriate mood and affect; insight and judgment normal. Course Initial Documented Vital Signs Temperature 97.9 F 12/02/17 10:45 Pulse Rate 73 12/02/17 10:45 Respiratory Rate 15 12/02/17 10:45 Blood Pressure 176/107 H 12/02/17 10:45 Pulse Oximetry 100 12/02/17 10:45 Last Documented Vital Signs Temperature 97.8 F 12/02/17 12:50 Pulse Rate 73 12/02/17 12:50 Respiratory Rate 17 12/02/17 12:50 Blood Pressure 156/75 H 12/02/17 12:50 Pulse Oximetry 100 12/02/17 12:50 Medical Decision Making [facility] Narrative Medical decision making narrative: Patient is a 26-year-old male with history of end-stage renal disease who presents with complaint of generalized malaise. He appears dehydrated on exam. He was given 250 cc of normal saline on arrival while awaiting the results of labs. Labs did show hyperkalemia with a potassium of 7 without any evidence of hemolysis. EKG did show changes concerning for this potassium level. He was then given dextrose, insulin, bicarb, albuterol, calcium for his potassium level. Dr. Raymond, plug paster on- call for his plug paster, was then consulted and agreed that the patient needed dialysis. The patient was then admitted to Dr. Pink, hospitalist director religious education, to the progressive unit for further management of his hyperkalemia. Medical Screen Exam Complete: Yes Emergency Medical Condition: Yes Differential Diagnosis Differential Diagnosis: Differential diagnosis includes but is not limited to sepsis, dehydration, electrolyte disturbance. Medical Records Medical records reviewed: Yes I reviewed the patient's medical records. Lab Data Lab results reviewed: Yes I reviewed the patient's lab results. Lab results narrative: Marked hyperkalemia. Result diagrams: 12/02/17 11:00 12/02/17 11:00 Lab Results 12/02/17 12/02/17 12/02/17 Range/Units 10:30 10:56 11:00 WBC 5.3 (4.0-11.0) th/mm3 RBC 2.82 L (4.50-5.90) mil/mm3 Hgb 8.7 L (13.0-17.0) gm/dL Hct 26.3 L (39.0-51.0) % MCV 93.2 (80.0-100.0) fL MCH 30.9 (27.0-34.0) pg MCHC 33.1 (32.0-36.0) % RDW 15.8 (11.6-17.2) % Plt Count 75 L D (150-450) th/mm3 MPV 8.9 (7.0-11.0) fL Prelim Diff (Auto) Slide review pending Neut % (Auto) 68.6 (16.0-70.0) % Lymph % (Auto) 20.1 (9.0-44.0) % [place] % (Auto) 7.0 (0.0-8.0) % Eos % (Auto) 3.6 (0.0-4.0) % Baso % (Auto) 0.7 (0.0-2.0) % Neut # (Auto) 3.7 (1.8-7.7) th/mm3 Lymph # (Auto) 1.1 (1.0-4.8) th/mm3 [place] # (Auto) 0.4 (0.0-0.9) th/mm3 Eos # (Auto) 0.2 (0.0-0.4) th/mm3 Baso # (Auto) 0.0 (0.0-0.2) th/mm3 WBC Differential . Diff Scan Auto diff confirmed Differential Comment . Sodium (136-145) meq/L Potassium (3.5-5.1) meq/L Chloride (98-107) meq/L Carbon Dioxide (21.0-32.0) meq/L Anion Gap (5-15) meq/L BUN (7-18) mg/dL Creatinine (0.60-1.30) mg/dL Estimated GFR (>89) mL/min POC Glucose 86 (68-110) mg/dl Random Glucose (74-106) mg/dL Calcium (8.5-10.1) mg/dL Total Bilirubin (0.2-1.0) mg/dL Direct Bilirubin (0.0-0.2) mg/dL Indirect Bilirubin (0.0-0.8) mg/dL AST (15-37) U/L ALT (12-78) U/L Alkaline Phosphatase (45-117) U/L Total Protein (6.4-8.2) g/dL Albumin (3.4-5.0) g/dL Lipase (73-393) U/L Urine Color Yellow (Yellw/Straw) Urine Clarity Clear (Clear) Urine pH 7.0 (5.0-8.5) Ur Specific [place] 1.009 (1.002-1.035) Urine Protein 500 or greater (Neg-Trace) mg/dL Urine Glucose (UA) Negative (Negative) mg/dL Urine Ketones Negative (Negative) mg/dL Urine Occult Blood Negative (Negative) Urine Nitrate Negative (Negative) Urine Bilirubin Negative (Negative) Urine Urobilinogen Less than 2 (Less than 2) mg/dL Ur Leukocyte Esterase Negative (Negative) Urine RBC 1 (0-3) /hpf Urine WBC 3 (0-5) /hpf Ur Squamous Epith Cells 1 (0-5) /hpf Micro UA Comment Culture not ind Urine Culture Comments Culture not ind 12/02/17 12/02/17 12/02/17 Range/Units 11:00 12:20 16:56 WBC (4.0-11.0) th/mm3 RBC (4.50-5.90) mil/mm3 Hgb (13.0-17.0) gm/dL Hct (39.0-51.0) % MCV (80.0-100.0) fL MCH (27.0-34.0) pg MCHC (32.0-36.0) % RDW (11.6-17.2) % Plt Count (150-450) th/mm3 MPV (7.0-11.0) fL Prelim Diff (Auto) Neut % (Auto) (16.0-70.0) % Lymph % (Auto) (9.0-44.0) % [place] % (Auto) (0.0-8.0) % Eos % (Auto) (0.0-4.0) % Baso % (Auto) (0.0-2.0) % Neut # (Auto) (1.8-7.7) th/mm3 Lymph # (Auto) (1.0-4.8) th/mm3 [place] # (Auto) (0.0-0.9) th/mm3 Eos # (Auto) (0.0-0.4) th/mm3 Baso # (Auto) (0.0-0.2) th/mm3 WBC Differential Diff Scan Differential Comment Sodium 139 (136-145) meq/L Potassium 7.0 H* (3.5-5.1) meq/L Chloride 106 (98-107) meq/L Carbon Dioxide 23.5 (21.0-32.0) meq/L Anion Gap 10 (5-15) meq/L BUN 49 H (7-18) mg/dL Creatinine 11.27 H* (0.60-1.30) mg/dL Estimated GFR 7 L (>89) mL/min POC Glucose 86 101 (68-110) mg/dl Random Glucose 77 (74-106) mg/dL Calcium 8.1 L (8.5-10.1) mg/dL Total Bilirubin 0.9 (0.2-1.0) mg/dL Direct Bilirubin 0.2 (0.0-0.2) mg/dL Indirect Bilirubin 0.7 (0.0-0.8) mg/dL AST 10 L (15-37) U/L ALT 18 (12-78) U/L Alkaline Phosphatase 42 L (45-117) U/L Total Protein 7.0 (6.4-8.2) g/dL Albumin 3.6 (3.4-5.0) g/dL Lipase 121 (73-393) U/L Urine Color (Yellw/Straw) Urine Clarity (Clear) Urine pH (5.0-8.5) Ur Specific [place] (1.002-1.035) Urine Protein (Neg-Trace) mg/dL Urine Glucose (UA) (Negative) mg/dL Urine Ketones (Negative) mg/dL Urine Occult Blood (Negative) Urine Nitrate (Negative) Urine Bilirubin (Negative) Urine Urobilinogen (Less than 2) mg/dL Ur Leukocyte Esterase (Negative) Urine RBC (0-3) /hpf Urine WBC (0-5) /hpf Ur Squamous Epith Cells (0-5) /hpf Micro UA Comment Urine Culture Comments ECG Data EKG Prior to Arrival: No Attestation: I personally reviewed and interpreted this ECG as follows: (Sinus rhythm at a rate of 77 bpm. There are peaked T waves throughout with LVH. No ST changes.) Discharge Plan Discharge Disposition Patient Disposition: 30 Still Patient Discharge Condition Condition: Serious Discharge Details Diagnosis: Hyperkalemia, ESRD (end stage renal disease) on dialysis, Acute dehydration Physicians Team ED Provider: Liz Pillai Primary Care Provider: Wilbert Campbell Attending Provider: Danny Saldana Other Providers: Etta Raymond Discharge Interventions Interventions: ED Discharge Assessment Last Done: 12/02/17 15:05 Status ED Status: Left Department Discharge Information Discharge Date/Time: 12/02/17 15:07
[2017-12-02 20:21] LABS: Calcium 7.7 mg/dL (8.5-10.1); Carbon Dioxide 31.8 meq/L (21.0-32.0)
--- NOTE | 2017-12-02 20:37 | P.AMA ---
AMA Note - AMA Note AMA Statement: Patient Lonnie Lacy has decided to leave the hospital against medical advice. This patient has the capacity to refuse care and understands the risks of leaving, including permanent disability and/or , and has had an opportunity to ask questions about his/her condition. The patient has been informed that he/she may return for care at any time, and follow up has been arranged/advised. - AMA Note Discharge Disposition: Left Against Medical Advice Patient Condition on Discharge: Serious
[2017-12-03] MEDS ORDERED: Vitamin B Complex/Vit C/Folic Tablet PO SCH (09:00)
--- NOTE | 2017-12-03 11:09 | ECG ---
Date Performed: 12/02/2017 Time Performed: 11:02:56 PTAGE: 26 years EKG: Sinus rhythm VOLTAGE CRITERIA FOR LVH ABNORMAL ECG PREVIOUS TRACING : 11/01/2017 12.01 Since the previous tracing, no significant change noted DOCTOR: Brennan Harrison Interpretating Date/Time 12/03/2017 11:07:52
== END 2017-12-02 19:03 | disposition left against medical advice (07) ==
LOC: NEPE 10:22 → NEDH 14:34 → HCIS 16:41
PROVIDERS: ADMIT Internal Medicine; ATTEND Internal Medicine

== ENCOUNTER 2018-06-09 08:22 | Observation (INO) ==
[~2018-06-09 08:22] MED LIST changes: -ALBU6.7H INH; +Bupivacaine PF 0.5% Inj 10 ML Vial ONE; +Heparin 10,000 UNITS/10 ML Vial (for IV use) ONE; +Heparin/NS PF Inj 500 ML ONE; +Protamine Sulfate Inj 50 MG/5 ML Vial ONE; +Sodium Chlor 0.9% Inj 250 ML ONE; +Thrombin Topical Soln 20,000 UNIT Vial TOPICAL ONE; -ZOFR4TAB PO
[2018-06-09] MEDS ORDERED: Sodium Chlor 0.9% Inj 500 ML IV.CONT ONE (09:15)
[2018-06-09] MEDS ORDERED: Chlorhexidine Gluconate 2% 1 Pack (2 Cloths) TOPICAL ONE (09:15)
[2018-06-09] MEDS ORDERED: Metoprolol Tartrate 25 MG Tablet PO ONE (09:15)
--- NOTE | 2018-06-09 09:47 | XR ---
EXAM DATE: 06/09/2018 9:43 AM EST AGE/SEX: 27 years / Male INDICATIONS: Pre op for left upper extremity access revision. CLINICAL DATA: This is the patient's initial encounter. Patient reports that signs and symptoms have been present for 1 day and indicates a pain score of 0/10. MEDICAL/SURGICAL HISTORY: . Hypertension. Renal failure, chronic. None. [place] [facility] [place]. . FINDINGS: A single AP view of the chest demonstrates cardiomegaly with bilateral perihilar airspace disease. Th e cardiomediastinal contours are unremarkable. Osseous structures are intact. CONCLUSION: Cardiomegaly and bilateral perihilar airspace disease likely pulmonary edema/CHF. Electronically signed by: Derrek Stevenson MD Board Certified Radiologist 06/09/2018 9:45 AM EST
--- NOTE | 2018-06-09 10:15 | P.HPVS ---
History of Present Illness Chief Complaint: High output heart failure, ESRD History of Present Illness: 27 yo male with ESRD s/p L UE brachiocephalic fistula that is working well for HD. Last HD Wednesday. He is being evaluated for CRTx and a C showed valvular dysfunction caused by high cardiac output. Flow volume estimates of the AVF are 1400 cc/min Presents for banding of AVF, likely with interposition PTFE - Inpatient Certification If this patient has been admitted as an Inpatient: I certify that the inpatient services were ordered in accordance with Medicare regulations governing the order. This includes certification that hospital inpatient services are reasonable and necessary and in the case of services not specified as inpatient-only under 42 CFR 419.22(n), that they are appropriately provided as inpatient services in accordance to with the 2-midnight benchmark under 43 CFR 412.3(e) Estimated Total Length of Stay (Days): 0 Plans for Post Hospital Care: Home Review of Systems All other systems reviewed negative except as stated in HPI PMFSH - History History Provided By: Patient - Medical History Medical History: Medical History (Last Reviewed 06/09/18 @ 10:14 by Camacho Combs MD) Asthma (Acute) AV fistula (Acute) HTN (hypertension) (Acute) ESRD (end stage renal disease) on dialysis (Acute) - Family History Family History: Family History (Last Reviewed 12/31/17 @ 13:16 by Izzy Mcmanus DO) Other Patient refused evaluation - Tobacco History Second Hand Smoke Exposure: No Smoking Status: Never smoker - Alcohol History How Often Do You Have a Drink Containing Alcohol: Never - Substance Use History Substance History: No History of Abuse Medications and Allergies Active Medications: Active Medications Lactated Ringer's (Lr 1000 Ml Inj) 1,000 mls @ 30 mls/hr IV.CONT .Q24H ONE Stop: 06/10/18 09:14 Sodium Chloride (Ns Inj) 500 mls @ 30 mls/hr IV.CONT .[id number] ONE Stop: 06/10/18 01:54 Allergies Allergy/AdvReac Type Severity Reaction Status Date / Time No Known Allergies Allergy Verified 06/09/18 09:44 Home Medications Medication Instructions Recorded Confirmed Type ondansetron [Zofran ODT] 4 mg PO Q6-8H PRN 12/12/17 06/09/18 History amlodipine 5 mg PO DAILY 06/09/18 06/09/18 History carvedilol 25 mg PO BID 06/09/18 06/09/18 History hydralazine 25 mg PO BID 06/09/18 06/09/18 History labetalol 300 mg PO BID 06/09/18 06/09/18 History sacubitril-valsartan [Entresto] 1 tab PO BID 06/09/18 06/09/18 History sevelamer carbonate [Renvela] 800 mg PO TID 06/09/18 06/09/18 History Physical Exam Vital Signs / I&O: Vital Signs 06/09/18 09:56 Temperature 97.8 F Pulse Rate 85 Respiratory Rate 16 Blood Pressure 162/107 H Pulse Oximetry 97 Intake & Output 06/08/18 06/09/18 06/09/18 18:59 06:59 18:59 Weight 59 kg Other: Weight On Admission 59 kg Neuro: alert, but slightly somnolent, GARCIA HEENT: anicteric sclera Heart: reg rate Lungs: clear Vascular: L UE with excellent thrill Impressions Chest X-Ray 06/09/18 00:00 CONCLUSION: Cardiomegaly and bilateral perihilar airspace disease likely pulmonary edema/ CHF. Caprini VTE Risk Assessment Caprini VTE Risk Assessment: No/Low Risk (score <= 1) (early ambulation) Caprini Risk Assessment Model: Point Value = 1 Point Value = 2 Point Value = 3 Point Value = 5 Age 41-60 Minor surgery BMI > 25 kg/m2 Swollen legs Varicose veins or History of unexplained or recurrent spontaneous Oral contraceptives or hormone replacement Sepsis (< 1 month) Serious lung disease, including pneumonia (< 1 month) Abnormal pulmonary function Acute myocardial infarction Congestive heart failure (< 1 month) History of inflammatory bowel disease Medical patient at bed rest Age 61-74 Arthroscopic surgery Major open surgery (> 45 min) Laparoscopic surgery (> 45 min) Malignancy Confined to bed (> 72 hours) Immobilizing plaster cast Central venous access Age >= 75 History of VTE Family history of VTE Factor V Leiden Prothrombin [id number] Lupus anticoagulant Anticardiolipin antibodies Elevated serum homocysteine Heparin-induced thrombocytopenia Other congenital or acquired thrombophilia Stroke (< 1 month) Elective arthroplasty Hip, pelvis, or leg fracture Acute spinal cord injury (< 1 month) Prophylaxis Regimen: Total Risk Factor Score Risk Level Prophylaxis Regimen 0-1 Low Early ambulation 2 Moderate Order ONE of the following: *Sequential Compression Device (SCD) *Heparin 5000 units SQ BID 3-4 Higher Order ONE of the following medications: *Heparin 5000 units SQ TID *Enoxaparin/Lovenox 40 mg SQ daily (WT < 150 kg, CrCl > 30 mL/min) *Enoxaparin/Lovenox 30 mg SQ daily (WT < 150 kg, CrCl > 10-29 mL/min) *Enoxaparin/Lovenox 30 mg SQ BID (WT < 150 kg, CrCl > 30 mL/min) AND/OR *Sequential Compression Device (SCD) 5 or more Highest Order ONE of the following medications: *Heparin 5000 units SQ TID (Preferred with Epidurals) *Enoxaparin/Lovenox 40 mg SQ daily (WT < 150 kg, CrCl > 30 mL/min) *Enoxaparin/Lovenox 30 mg SQ daily (WT < 150 kg, CrCl > 10-29 mL/min) *Enoxaparin/Lovenox 30 mg SQ BID (WT < 150 kg, CrCl > 30 mL/min) AND *Sequential Compression Device (SCD) Assessment and Plan - Assessment (1) ESRD (end stage renal disease) on dialysis Code(s): N18.6 - End stage renal disease; Z99.2 - Dependence on renal dialysis Status: Acute - Plan LEFT UE access revision PACU post-op
[2018-06-09 10:20] LABS: Baso # (Auto) 0.1 th/mm3 (0.0-0.2); Baso % (Auto) 0.9 % (0.0-2.0); Eos # (Auto) 0.3 th/mm3 (0.0-0.4); Eos % (Auto) 4.9 % (0.0-4.0); Hematocrit 23.7 % (39.0-51.0); Hemoglobin 7.9 gm/dL (13.0-17.0); Lymph % (Auto) 15.5 % (9.0-44.0); Mean Corpuscular HGB Conc 33.2 % (32.0-36.0); Mean Corpuscular Hemoglobin 32.1 pg (27.0-34.0); Mean Corpuscular Volume 96.7 fL (80.0-100.0); Mean Platelet Volume 8.7 fL (7.0-11.0); Mono # (Auto) 0.4 th/mm3 (0.0-0.9); Mono % (Auto) 6.9 % (0.0-8.0); Neut # (Auto) 4.6 th/mm3 (1.8-7.7); Neut % (Auto) 71.8 % (16.0-70.0); Platelet Count 148 th/mm3 (150-450); Red Blood Count 2.45 mil/mm3 (4.50-5.90); Red Cell Distribution Width 18.3 % (11.6-17.2); White Blood Count 6.5 th/mm3 (4.0-11.0)
[2018-06-09 10:28] LABS: Activated Partial Thrombo Time 30.6 sec (23.4-31.7); INR 1.2 Ratio; Prothrombin Time 12.5 sec (9.8-11.6)
[2018-06-09 10:34] LABS: Calcium 8.7 mg/dL (8.5-10.1); Carbon Dioxide 24.2 meq/L (21.0-32.0)
[2018-06-09] MEDS ORDERED: Lidocaine PF 1% Inj 5 ML Syringe OTHER ONE (11:05)
[2018-06-09] MEDS ORDERED: Sodium Chlor 0.9% Inj 250 ML IV.CONT ONE (11:05)
[2018-06-09] MEDS ORDERED: Phenylephrine/NS 1000 MCG/10ML Syringe IV.PUSH ONE (11:05)
[2018-06-09] MEDS ORDERED: Morphine Inj 4 MG/ML Vial IV.PUSH PRN (12:22)
--- NOTE | 2018-06-09 12:22 | P.OP ---
- Preoperative Diagnosis (1) ESRD (end stage renal disease) on dialysis - Postoperative Diagnosis (1) ESRD (end stage renal disease) on dialysis Date of procedure: 06/09/18 Procedure: LEFT upper extremity access revision (6mm PTFE) Implants: 6mm PTFE Anesthesia: GETA Surgeon: Camacho Combs MD Associate Professor Of Chemistry: Hema Barrera Estimated blood loss (mL): 30 IV fluids (mL): 550 Pathology: none sent Operation and Findings: aneurysmal AVF excised and replaced with 6mm PTFE + Doppler signal in wrist and good thrill at end of case
[2018-06-09] MEDS ORDERED: fentaNYL Citrate Inj 100 MCG/2 ML Ampul ONE (13:03)
[2018-06-09] MEDS ORDERED: Bisacodyl 10 MG Supp RECTAL PRN (14:09)
--- NOTE | 2018-06-09 14:22 | MP ---
cc: Camacho Combs MD DATE OF OPERATION: 06/09/2018 PREOPERATIVE DIAGNOSIS: Left upper extremity arteriovenous fistula, high flow cardiac output. POSTOPERATIVE DIAGNOSIS: Left upper extremity - arteriovenous fistula, high flow cardiac output. PROCEDURE PERFORMED: Left upper extremity access revision (interposition of the 6 mm PTFE). ATTENDING PHYSICIAN: Camacho Combs MD SUBPOENA SERVER SURGEON: Hema Barrera. ANESTHESIA: General. INDICATIONS FOR PROCEDURE: Mr. Lacy is a 27-year-old gentleman who has end-stage renal disease and he has high output cardiac failure as confirmed by recent heart catheterization. He is being prohibited from the renal transplantation list because of his high output. After a long discussion with the patient, his significant other and his providers, we offered an interposition to band or restrict flow through the fistula. DESCRIPTION OF PROCEDURE: Informed consent was obtained. The patient was taken to the operating room and placed supine on the operating table. An appropriate timeout was taken to ensure the patient's identity, the operative site and planned procedure. The administration of 1 gram of vancomycin was administered prior to skin incision and will be discontinued after single preoperative dose. Vancomycin was chosen because of the patient's end-stage renal disease. Everyone in the room agreed with timeout and we proceeded. His left arm was prepped and draped. Incision made along the course of the fistula, carried down through subcutaneous tissue with electrocautery. The fistula was dissected free circumferentially and proximal distal control was obtained with profunda clamps. A segment of the fistula was excised. A 6 mm PTFE was brought up onto the field; spatulated and sewn end-to-end proximally and distally with a running 5-0 Prolene suture. At the completion, it was flushed and noted to be hemostatic. There was a nice thrill in the fistula and a Doppler signal. The wound was irrigated and made hemostatic; infiltrated with Marcaine and closed with 2-0 Polysorb, 3-0 Polysorb and 4-0 Monocryl. Sponge and needle counts were correct at the end of the case. I was present, scrubbed, and performed the entire procedure. MD CECILIA Meier/pierre/rey , 12:25 PM , 12:31 PM [place]
[2018-06-09] MEDS ORDERED: Acetaminophen 325 MG Tablet PO PRN (14:52)
[2018-06-09] MEDS ORDERED: Sod Chloride 0.9% Inj 1,000 ML OTHER PRN ×2 (14:52→15:15)
[2018-06-09] MEDS ORDERED: Gelatin 12 MM/7 MM Topical Foam TOPICAL PRN (14:52)
[2018-06-09] MEDS ORDERED: Sod Chloride 0.9% Inj 1,000 ML IV.CONT PRN (14:52)
[2018-06-09] MEDS ORDERED: Albumin Human 25% Inj 100 ML IV.SIG PRN (14:52)
[2018-06-09] MEDS ORDERED: Heparin 10,000 UNITS/10 ML Vial (for IV use) OTHER PRN (14:52)
--- NOTE | 2018-06-09 15:02 | P.CONNP ---
History of Present Illness Service: Nephrology Consult date: 06/09/18 Requesting Physician: Camacho Combs Reason for Consult: ESRD Hyperkalemia Primary Care Provider: Dr Hailee Banerjee Chief Complaint: s/p AVF revison History of Present Illness: Patient is a 27 year old male with ESRD, Hypertension from [place] area came in for AVF revision due to high output cardiac failure, PTFE graft was used and he missed his dialysis yesterday, he stated he had some arrangements but due to high potassium he was referred as in patient. Review of Systems Constitutional: Reports fatigue Eyes: Denies blind spots, Denies blurry vision, Denies bulging eyes, Denies change in vision, Denies double vision, Denies discharge, Denies dry eyes, Denies floaters, Denies irritation, Denies itchy eyes, Denies loss of vision, Denies pain, Denies requires corrective lenses, Denies sensitivity to light, Denies other Ears, Nose, Mouth, and Throat: Denies abnormal hearing, Denies bleeding gums, Denies bad breath, Denies change in voice, Denies dental pain, Denies difficulty swallowing, Denies dizziness, Denies dry mouth, Denies ear discharge , Denies ear pain, Denies facial pain, Denies headache(s), Denies hearing loss, Denies hoarseness, Denies lip swelling, Denies nosebleed, Denies mouth lesions, Denies mouth pain, Denies nasal congestion, Denies nasal discharge, Denies nasal obstruction, Denies nasal trauma, Denies neck lump, Denies neck pain, Denies nose pain, Denies pain with swallowing, Denies poor balance, Denies post nasal drip, Denies ringing in the ears, Denies sinus pain, Denies sinus pressure , Denies sore throat, Denies throat swelling, Denies tongue swelling, Denies other Cardiovascular: Reports shortness of breath with activity, Reports shortness of breath when lying down Respiratory: Reports shortness of breath Gastrointestinal: Denies abdominal pain, Denies belching, Denies black, tarry stools, Denies bloating, Denies bright, red blood in stools, Denies change in bowel habits, Denies constant urge to pass stool, Denies change in stools, Denies coffee ground vomit, Denies constipation, Denies cramping, Denies difficulty swallowing, Denies excessive passing of gas, Denies feeling full early, Denies heartburn, Denies incontinent of stools, Denies loose stools, Denies nausea, Denies pain with swallowing, Denies vomiting, Denies vomiting blood, Denies other Genitourinary: Reports urinary frequency (declined) Musculoskeletal: Denies abnormal walking, Denies back pain, Denies body aches, Denies decreased muscle mass, Denies deformity, Denies joint pain, Denies joint swelling, Denies limited joint movement, Denies loss of height, Denies muscle cramps, Denies muscle weakness, Denies neck pain, Denies numbness, Denies radiating pain into limb, Denies stiffness, Denies tingling, Denies other Skin/Breast: Denies acne, Denies bleeding lesions, Denies boil, Denies breast swelling, Denies breast skin changes, Denies breast pain, Denies breast lump, Denies change in breast shape, Denies change in hair, Denies change in skin color, Denies changing lesions, Denies dry skin, Denies excessive hair growth, Denies hair loss, Denies itching, Denies lesions, Denies nail changes, Denies new lesions, Denies nipple discharge, Denies non-healing lesions, Denies redness , Denies sensitivity to light, Denies rash, Denies skin pain, Denies skin ulcer , Denies sores, Denies stretch jean, Denies unusual bruising, Denies wounds, Denies yellowing of the skin, Denies other Psychiatric: Reports other Endocrine: Denies cold intolerance, Denies excessive sweating, Denies flushing, Denies heat intolerance, Denies increased hunger, Denies increased thirst, Denies increased urination, Denies rapid, pounding, or irregular heartbeat, Denies other Hematologic/Lymphatic: Denies easy bleeding, Denies easy bruising, Denies enlarged lymph nodes, Denies other Allergic/Immunologic: Denies GI upset with certain foods, Denies hives, Denies itchy eyes, Denies lip swelling, Denies seasonal runny nose, Denies throat swelling, Denies tongue swelling, Denies wheezing, Denies other PMFSH - History History Provided By: Patient - Medical History Medical History: Medical History (Last Reviewed 06/09/18 @ 14:59 by Etta Raymond MD) Asthma (Acute) AV fistula (Acute) HTN (hypertension) (Acute) ESRD (end stage renal disease) on dialysis (Acute) - Family History Family History: Family History (Last Updated 06/09/18 @ 15:00 by Etta Raymond MD) Grandparent Patient refused evaluation Other ESRD (end stage renal disease) - Social History I have reviewed the patient's Social History: Yes - Tobacco History Second Hand Smoke Exposure: No Smoking Status: Never smoker - Alcohol History How Often Do You Have a Drink Containing Alcohol: Never - Substance Use History Substance History: No History of Abuse - Travel History Recent Travel in the [place] Within the Last 8 Weeks: No Recent Travel Out of the Country Within the Last 8 Weeks: No Medications and Allergies Active Medications: Active Medications Al Hydroxide/Mg Hydroxide (Milk Of Magnesia Liq) 30 ml PO Q12H PRN PRN Reason: Mild Constipation Albuterol (Ventolin Hfa Inh) 2 puff INH Q6H PRN PRN Reason: BRONCHOSPASM Amlodipine Besylate (Norvasc) 5 mg PO DAILY KAYLIE Bisacodyl (Dulcolax Supp) 10 mg RECTAL DAILY PRN PRN Reason: SEVERE CONSITIPATION Bisacodyl (Dulcolax Ec) 5 mg PO DAILY PRN PRN Reason: MODERATE CONSTIPATION Carvedilol (Coreg) 25 mg PO BID KAYLIE Fluticasone Propionate (Flovent Hfa 220 Mg Inh) 1 puff INH DIRECTED PRN PRN Reason: Bronchodilation Hydralazine HCl (Apresoline) 25 mg PO BID KAYLIE Lactated Ringer's (Lr 1000 Ml Inj) 1,000 mls @ 30 mls/hr IV.CONT .Q24H ONE Stop: 06/10/18 09:14 Last Admin: 06/09/18 10:23 Dose: Not Given Sodium Chloride (Ns Inj) 500 mls @ 30 mls/hr IV.CONT .[id number] ONE Stop: 06/10/18 01:54 Last Admin: 06/09/18 09:30 Dose: 30 mls/hr Labetalol HCl (Trandate) 300 mg PO BID KAYLIE Lactulose (Lactulose Liq) 30 ml PO DAILY PRN PRN Reason: SEVERE CONSITIPATION Miscellaneous Information (Misc Nursing Information) 0 each OTHER UNSCH PRN PRN Reason: SEE LABEL COMMENTS Stop: 06/10/18 12:49 Morphine Sulfate (Morphine Inj) 2 mg IV.PUSH Q2H PRN PRN Reason: PAIN SCALE 7 TO 10 Ondansetron HCl (Zofran Odt) 4 mg PO Q6H PRN PRN Reason: Nausea Oxycodone HCl (Roxicodone) 5 mg PO Q6H PRN PRN Reason: PAIN SCALE 1 TO 6 Senna/Docusate Sodium (Ruth-Colace) 1 tab PO BID KAYLIE Sennosides (Senokot) 17.2 mg PO Q12H PRN PRN Reason: Moderate Constipation Sodium Chloride (Ns Flush) 2 ml IV.FLUSH BID KAYLIE Sodium Chloride (Ns Flush) 2 ml IV.FLUSH PRN PRN PRN Reason: FLUSH AFTER USING IV ACCESS Allergies Allergy/AdvReac Type Severity Reaction Status Date / Time No Known Allergies Allergy Verified 06/09/18 09:44 Home Medications Medication Instructions Recorded Confirmed Type ondansetron [Zofran ODT] 4 mg PO Q6-8H PRN 12/12/17 06/09/18 History albuterol sulfate [ProAir HFA] 2 puff INHALATION Q6H PRN 06/09/18 06/09/18 History amlodipine 5 mg PO DAILY 06/09/18 06/09/18 History carvedilol 25 mg PO BID 06/09/18 06/09/18 History fluticasone [Flovent HFA] 1 puff INHALATION DIRECTED PRN 06/09/18 06/09/18 History hydralazine 25 mg PO BID 06/09/18 06/09/18 History labetalol 300 mg PO BID 06/09/18 06/09/18 History sacubitril-valsartan [Entresto] 1 tab PO BID 06/09/18 06/09/18 History sevelamer carbonate [Renvela] 800 mg PO TID 06/09/18 06/09/18 History Exam Vital signs: Vital Signs 06/09/18 09:56 06/09/18 12:50 06/09/18 13:05 Temperature 97.8 F 97.2 F L Pulse Rate 85 69 66 Respiratory Rate 16 20 18 Blood Pressure 162/107 H 131/87 135/88 Pulse Oximetry 97 100 97 06/09/18 13:23 06/09/18 13:40 06/09/18 14:24 Temperature 97.8 F 97.5 F L 97.7 F Pulse Rate 66 70 72 Respiratory Rate 18 20 20 Blood Pressure 143/84 H 146/96 H 156/107 H Pulse Oximetry 96 99 98 Intake & Output 06/08/18 06/09/18 06/09/18 18:59 06:59 18:59 Intake Total 1420 / 1420 Output Total 30 / 30 Balance 1390 / 1390 Weight 59 kg Intake: IV 750 / 750 Heparin/NS PF Inj 500 ML @ 0 500 / 500 mls/hr .ROUTE .STK-MED ONE Rx#: [id number] NS Inj 250 ML @ 0 mls/hr .ROUTE 250 / 250 .STK-MED ONE Rx#:[id number] Oral 120 / 120 Anesthesia Amount 550 / 550 Output: Estimated Blood Loss 30 / 30 Other: Weight On Admission 59 kg Narrative: GENERAL: Well-nourished, well-developed patient. SKIN: Warm and dry. HEAD: Normocephalic. EYES: No scleral icterus. No injection or drainage. NECK: Supple, trachea midline. No JVD or lymphadenopathy. CARDIOVASCULAR: Regular rate and rhythm without murmurs, gallops, or rubs. RESPIRATORY: Breath sounds equal bilaterally. No accessory muscle use. GASTROINTESTINAL: Abdomen soft, non-tender, nondistended. EXTREMITIES: AVG used to narrow outflow NEUROLOGICAL: Awake, alert, and oriented x 3. Non-focal. Results - Lab Results 06/09/18 09:50 06/09/18 09:50 Most recent lab results Calcium 8.7 mg/dL (8.5-10.1) 06/09/18 09:50 Assessment and Plan - Assessment (1) ESRD (end stage renal disease) on dialysis Code(s): N18.6 - End stage renal disease; Z99.2 - Dependence on renal dialysis Status: Acute Plan: hemodialysis today orders given BP high will monitor , may dc after dialysis if stable FU with Nephrology as out patient (2) Anemia in CKD (chronic kidney disease) Code(s): N18.9 - Chronic kidney disease, unspecified; D63.1 - Anemia in chronic kidney disease Status: Acute (3) Hyperkalemia Code(s): E87.5 - Hyperkalemia Status: Acute (4) Hypertension Code(s): I10 - Essential (primary) hypertension Status: Acute
[2018-06-09] MEDS ORDERED: *morphine SULFATE 4 MG/ML PERIprocedure ONLY ONE (20:19)
[2018-06-09] MEDS: hydrALAZINE 25 MG Tablet PO SCH (23:00)
[2018-06-09] MEDS: Carvedilol 12.5 MG Tablet PO SCH (23:00)
[2018-06-09] MEDS: Senna/Docusate Sodium 8.6/50 MG Tablet PO SCH (23:08)
--- NOTE | 2018-06-10 07:30 | P.PNVS ---
Subjective Post Op Day #: 1 Procedure: L UE access revision Subjective/Hospital Course: looks great, had HD post-op no pain hand ok Objective Vital Signs / I&O: Vital Signs 06/09/18 09:56 06/09/18 12:50 06/09/18 13:05 Temperature 97.8 F 97.2 F L Pulse Rate 85 69 66 Respiratory Rate 16 20 18 Blood Pressure 162/107 H 131/87 135/88 Pulse Oximetry 97 100 97 06/09/18 13:23 06/09/18 13:40 06/09/18 14:24 Temperature 97.8 F 97.5 F L 97.7 F Pulse Rate 66 70 72 Respiratory Rate 18 20 20 Blood Pressure 143/84 H 146/96 H 156/107 H Pulse Oximetry 96 99 98 06/09/18 19:30 06/09/18 19:45 06/09/18 20:00 Temperature 98.0 F Pulse Rate 90 90 88 Respiratory Rate 16 18 20 Blood Pressure 169/96 H Pulse Oximetry 99 99 99 06/09/18 20:30 06/09/18 23:00 06/10/18 00:00 Temperature 98.3 F 98.8 F Pulse Rate 90 95 H 88 Respiratory Rate 16 16 Blood Pressure 170/99 H 153/93 H Pulse Oximetry 99 95 06/10/18 01:00 06/10/18 02:00 06/10/18 03:00 Temperature Pulse Rate 88 90 90 Respiratory Rate Blood Pressure Pulse Oximetry 06/10/18 04:00 06/10/18 05:00 06/10/18 06:00 Temperature 97.8 F Pulse Rate 88 84 87 Respiratory Rate 16 Blood Pressure 145/92 H Pulse Oximetry 95 Intake & Output 06/09/18 06/10/18 06/10/18 18:59 06:59 18:59 Intake Total 1420 / 1420 720 / 720 Output Total 30 / 30 Balance 1390 / 1390 720 / 720 Weight 59 kg 59 kg Intake: IV 750 / 750 Heparin/NS PF Inj 500 ML @ 0 500 / 500 mls/hr .ROUTE .STK-MED ONE Rx#: [id number] NS Inj 250 ML @ 0 mls/hr .ROUTE 250 / 250 .STK-MED ONE Rx#:[id number] Oral 120 / 120 720 / 720 Anesthesia Amount 550 / 550 Output: Estimated Blood Loss 30 / 30 Other: # Voids 0 Weight On Admission 59 kg Exam: L UE with + thrill hand ok dressing intact Laboratory Results - last 24 hr 06/09/18 06/09/18 06/09/18 09:50 09:50 09:50 WBC 6.5 RBC 2.45 L Hgb 7.9 L Hct 23.7 L MCV 96.7 MCH 32.1 MCHC 33.2 RDW 18.3 H Plt Count 148 L MPV 8.7 Neut % (Auto) 71.8 H Lymph % (Auto) 15.5 Gregory % (Auto) 6.9 Eos % (Auto) 4.9 H Baso % (Auto) 0.9 Neut # (Auto) 4.6 Lymph # (Auto) 1.0 Gregory # (Auto) 0.4 Eos # (Auto) 0.3 Baso # (Auto) 0.1 WBC Differential . Differential Comment Auto diff final PT INR APTT Sodium 140 Potassium 6.0 H Chloride 103 Carbon Dioxide 24.2 Anion Gap 13 BUN 99 H Creatinine 15.24 H* Estimated GFR 5 L Random Glucose 81 Calcium 8.7 Blood Type B Positive Blood Type Recheck Required Antibody Screen Negative 06/09/18 09:50 WBC RBC Hgb Hct MCV MCH MCHC RDW Plt Count MPV Neut % (Auto) Lymph % (Auto) Gregory % (Auto) Eos % (Auto) Baso % (Auto) Neut # (Auto) Lymph # (Auto) Gregory # (Auto) Eos # (Auto) Baso # (Auto) WBC Differential Differential Comment PT 12.5 H INR 1.2 APTT 30.6 Sodium Potassium Chloride Carbon Dioxide Anion Gap BUN Creatinine Estimated GFR Random Glucose Calcium Blood Type Blood Type Recheck Antibody Screen Assessment and Plan - Assessment (1) ESRD (end stage renal disease) on dialysis Code(s): N18.6 - End stage renal disease; Z99.2 - Dependence on renal dialysis Status: Acute - Plan POD#1 s/p L UE access revision looks great hand ok ready for discharge Discharge Planning: today
--- NOTE | 2018-06-10 07:33 | P.DS ---
Discharge Summary - Admission Date 06/09/18 14:09 - Admission Diagnosis (1) AV fistula (2) ESRD (end stage renal disease) on dialysis - Discharge Diagnosis (1) AV fistula Status: Acute (2) ESRD (end stage renal disease) on dialysis Status: Acute - Summary Brief History from admission: 27 yo male with ESRD s/p L UE brachiocephalic fistula that is working well for HD. Last HD Wednesday. He is being evaluated for CRTx and a LHC showed valvular dysfunction caused by high cardiac output. Flow volume estimates of the AVF are 1400 cc/min Presents for banding of AVF, likely with interposition PTFE Procedure: L UE access revision Significant Findings: Abnormal Lab Results 06/09/18 06/09/18 06/09/18 09:50 09:50 09:50 WBC 6.5 RBC 2.45 L Hgb 7.9 L Hct 23.7 L MCV 96.7 MCH 32.1 MCHC 33.2 RDW 18.3 H Plt Count 148 L MPV 8.7 Neut % (Auto) 71.8 H Lymph % (Auto) 15.5 Pitkin % (Auto) 6.9 Eos % (Auto) 4.9 H Baso % (Auto) 0.9 Neut # (Auto) 4.6 Lymph # (Auto) 1.0 Pitkin # (Auto) 0.4 Eos # (Auto) 0.3 Baso # (Auto) 0.1 WBC Differential . Differential Comment Auto diff final PT INR APTT Sodium 140 Potassium 6.0 H Chloride 103 Carbon Dioxide 24.2 Anion Gap 13 BUN 99 H Creatinine 15.24 H* Estimated GFR 5 L Random Glucose 81 Calcium 8.7 Blood Type B Positive Blood Type Recheck Required Antibody Screen Negative 06/09/18 09:50 WBC RBC Hgb Hct MCV MCH MCHC RDW Plt Count MPV Neut % (Auto) Lymph % (Auto) [place]kin % (Auto) Eos % (Auto) Baso % (Auto) Neut # (Auto) Lymph # (Auto) Pitkin # (Auto) Eos # (Auto) Baso # (Auto) WBC Differential Differential Comment PT 12.5 H INR 1.2 APTT 30.6 Sodium Potassium Chloride Carbon Dioxide Anion Gap BUN Creatinine Estimated GFR Random Glucose Calcium Blood Type Blood Type Recheck Antibody Screen Hospital Course: The patient did well post-operatively. He was admitted post-op for observation and received hemodialysis. Looks great POD#1 - Discharge Instructions Any questions or concerns: Call [facility] [phone] Discharge Plan - Discharge Disposition Patient Disposition: 01 Discharge Home - Discharge Condition Condition: Good - Discharge Order Discharge Orders: Discharge Order (Routine); Ordered 06/09/18 Ordered By: Camacho Combs - Physicians Team Attending Provider: Camacho Combs Other Providers: Etta Raymond MD - Rxs /Orders / Referrals /Forms Prescriptions: Continue albuterol sulfate [ProAir HFA] 90 mcg/actuation Hfa Aerosol Inhaler 2 puff INHALATION Q6H PRN (Reason: Bronchodilation) amlodipine 5 mg Tablet 5 mg PO DAILY bisacodyl 5 mg tablet 5 mg PO DAILY PRN (Reason: constipation) Qty: 30 RF: 0 carvedilol 12.5 mg Tablet 25 mg PO BID fluticasone [Flovent HFA] 220 mcg/actuation Hfa Aerosol Inhaler 1 puff INHALATION DIRECTED PRN (Reason: Bronchodilation) hydralazine 10 mg Tablet 25 mg PO BID labetalol 300 mg Tablet 300 mg PO BID ondansetron [Zofran ODT] 4 mg Tablet,Disintegrating 4 mg PO Q6-8H PRN (Reason: Nausea) sacubitril-valsartan [Entresto] 24-26 mg Tablet 1 tab PO BID sevelamer carbonate [Renvela] 800 mg Tablet 800 mg PO TID Referrals: Dr Hailee Banerjee MD [Other] - See Instructions
[2018-06-10 07:56] LABS: Hematocrit 21.5 % (39.0-51.0); Hemoglobin 7.3 gm/dL (13.0-17.0); Mean Corpuscular HGB Conc 33.7 % (32.0-36.0); Mean Corpuscular Hemoglobin 32.4 pg (27.0-34.0); Platelet Count 138 th/mm3 (150-450); Red Blood Count 2.24 mil/mm3 (4.50-5.90); Red Cell Distribution Width 17.9 % (11.6-17.2); White Blood Count 4.7 th/mm3 (4.0-11.0)
[2018-06-10] MEDS: hydrALAZINE 25 MG Tablet PO SCH (08:16)
[2018-06-10 08:17] LABS: Calcium 7.6 mg/dL (8.5-10.1); Carbon Dioxide 32.6 meq/L (21.0-32.0); Potassium 4.5 meq/L (3.5-5.1)
[2018-06-10] MEDS: Carvedilol 12.5 MG Tablet PO SCH (08:17)
[2018-06-10] MEDS: Senna/Docusate Sodium 8.6/50 MG Tablet PO SCH (08:17)
[2018-06-10 08:25] LABS: Hepatitits B Surface Antigen Nonreactive (Nonreactive)
[2018-06-10 08:55] LABS: Hepatitis A IgM Antibody Nonreactive (Nonreactive)
[2018-06-10] MEDS ORDERED: amLODIPine 5 MG Tablet PO SCH (09:00)
[2018-06-10 09:57] VITALS: BP 160/101; RESP 18; TEMP 98.3; O2SAT 97
[2018-06-10 10:38] VITALS: PULSE 84
== END 2018-06-10 10:48 | disposition home or self-care (01) ==
LOC: HSDI 08:22 → HSDC 08:22 → HCPC 21:02
PROVIDERS: ADMIT Surgery; ATTEND Surgery
DX: D63.1 Anemia in chronic kidney disease; Z79.51 Long term (current) use of inhaled steroids; Z99.2 Dependence on renal dialysis; I13.2 Hypertensive heart and chronic kidney disease with heart failure and with stage 5 chronic kidney disease, or end stage renal disease; I50.83 High output heart failure; Z79.899 Other long term (current) drug therapy; J45.909 Unspecified asthma, uncomplicated; N18.6 End stage renal disease; E87.5 Hyperkalemia
CPT/HCPCS: 71010; 71045; 80048; 80074; 85025; 85027; 85610; 85730; 86850; 86900; 86901; 90774; 90784; 90935; 96374; C1768; C8952; G0378; J1644; J2270; J2370; J2405; J2704; J2720; J3010; J3370; J7040; J7050